=== PATIENT | male | born 1970 | race Caucasian/White ===

== ENCOUNTER 2017-10-17 17:58 | Inpatient (IN) | payer OTHER ==
[2017-10-17 18:11] VITALS: BMI 45.9
[2017-10-17] MEDS ORDERED: Naloxone 0.4 mg/ml Inj (Adult) ONE (18:19)
[2017-10-17] MEDS ORDERED: Naloxone 4 mg/10 ml Inj IV STA (18:20)
--- NOTE | 2017-10-17 18:24 | EDPD ---
HPI Stroke - General Time Seen by Provider: 10/17/17 18:18 Chief Complaint: Altered Mental Status Historian: Patient, EMS, Other (pt is currently poor historian) - History of Present Illness Narrative History of Present Illness (Free Text): 10/17/17 1818 pt p/w + altered mental status from the street; pt was witnessed to be wondering by multiple by-standers; pt has no recollection; pt arrived to ED altered and able only to state his name; pt denied any pain; pt denied other complaints unknown timeframe of pt's altered state PCP: unknown Date:: 10/17/17 Timing: Other (unknown) Context: Walking Associated Symptoms: other (nothing) Exacerbated by: Nothing Relieved by: Nothing - Location Location: Mental Status - Pain Assessment/Levels Maximum Severity: None Severity Current: None rTPA Inclusion/Exclusion - Refusal of Treatment Patient Refused Treatment: No - Inclusion Criteria for Altepase Patient is 18 years or Older: Yes The Clinical Diagnosis of Ischemic Stroke That is Causing a Potentially Disabling Neurological Deficit: No Time of Onset is Well Established to be Less Than 270 Minute Before Treatment Would Begin: No Risk/Benefit Discussed With Patient/Family Member Present: Yes - Exclusion Criteria for Altepase Uncontrolled Hypertension at Time of Treatment (Systolic BP above 185 or Diastolic BP above 110 mmHg): No Active Internal Bleeding: No Known Bleeding Diathesis Including but Not Limited to: Platelets Below 100,000/ mm,PTT Above 40 sec After Heparin Use, Current Use of Oral Anitcoagulant With INR Greater Than 1.7 or PT Greater Than 15 secs: No Evidence of an Intracranial Hemorrhage: No Evidence of Major Acute Infarct With Signs Greater Than 1/3 MCA Territory: No Suspicion of Subarachnoid Hemorrhage on Pretreatment Evaluation Even if CT Head Negative For Hemorrhage: No - Warning to TPA With Conditions Following Conditions Weighed Against Anticipated Benefit: Yes Condition: Care Team Unable to Determine Eligibilty (pt with unknown timeframe of altered mental status) Past Medical History - Provider Review Nursing Documentation Reviewed: Yes - Travel History Have you recently traveled outside [place] w/in the past 3 mons?: No - Past History Past History: Unable to Obtain - Infectious Disease Hx of Infectious Diseases: None - Tetanus Immunization Tetanus Immunization: Unknown - Cardiac Hx Hypertension: Yes - Pulmonary Hx Sleep Apnea: Yes - Neurological Hx Neurological Disorder: No - HEENT Hx HEENT Disorder: No - Renal Hx Renal Disorder: No - Endocrine/Metabolic Hx Diabetes Mellitus Type 2: Yes - Hematological/Oncological Hx Anemia: Yes - Integumentary Hx Dermatological Disorder: No - Musculoskeletal/Rheumatological Hx Falls: Yes - Gastrointestinal Hx Gastrointestinal Disorders: No - Genitourinary/Gynecological Hx Genitourinary Disorders: No - Psychiatric Hx Psychophysiologic Disorder: No Hx Substance Use: Yes - Surgical History Other/Comment: throat surgery - Anesthesia Hx Anesthesia: No Hx Anesthesia Reactions: No Hx Malignant Hyperthermia: No Family/Social History - Family/Social History Family History: Non-Contributory Tobacco: Smokes Alcohol: Other (unknown) Drugs: Rajni - Review Nursing documentation reviewed.: Yes Allergies/Home Meds Allergies/Adverse Reactions: Allergies FISH Allergy (Verified 10/17/17 18:08) RASH Home Medications: Home Meds Medication Instructions Recorded Confirmed Adult Low Dose Aspirin EC 81 PO DAILY 07/26/15 07/26/15 Cogentin 2 mg PO BID 07/26/15 10/18/16 Metformin HCl 1,000 mg PO BID 07/26/15 10/18/16 Prilosec 20 mg PO 07/26/15 07/26/15 Valsartan [Diovan] 320 mg PO DAILY 07/26/15 10/18/16 Zocor 40 mg PO DAILY 07/26/15 10/18/16 Depakote ER 10/18/16 Benztropine [Cogentin] 2 mg PO DAILY 04/25/17 04/25/17 Divalproex [Depakote ER] 1,250 mg PO DAILY 04/25/17 04/25/17 Haloperidol [Haldol] 10 mg PO DAILY 04/25/17 04/25/17 Lisinopril [Zestril] 30 mg PO DAILY 04/25/17 04/25/17 cloZAPine [Clozaril] 450 mg PO DAILY 04/25/17 04/25/17 Review of Systems - Review of Systems Systems not reviewed;Unavailable: Altered Mental Status Constitutional: Fatigue. absent: Weight Change Eyes: Normal ENT: Normal Respiratory: Normal. absent: SOB Cardiovascular: Normal. absent: Chest Pain Gastrointestinal: Normal. absent: Abdominal Pain Genitourinary Male: Normal Musculoskeletal: Normal. absent: Back Pain, Neck Pain Skin: Normal Neurological: Other (altered behavior). absent: Headache, Dizziness Endocrine: Normal Hemo/Lymphatic: Normal Psychiatric: Normal ED Stroke Physical Exam Vital Signs Reviewed: Yes Vital Signs Pulse Resp Pulse Ox 10/17/17 18:09 104 H 21 96 Temperature: Afebrile Blood Pressure: Normal Pulse: Tachycardic Respiratory Rate: Normal Appearance: Positive for: Unkept, Other (resting in bed, arousable to voice but quickly falls asleep; NAD, resting in bed, + unkempt, + smells of urine, cooperative) Pain Distress: None Mental Status: Positive for: other (Alertx1 (NOT to date, time and place)) Finger Stick Blood Glucose: 148 - Systems Exam Head: Present: Atraumatic, Normocephalic Pupils: Present: Pinpoint, Other (no nystagmus, no photophobia, sclera anicteric ) Extroacular Muscles: Present: EOMI Conjunctiva: Present: Normal Ears: Present: Normal Mouth: Present: Moist Mucous Membranes, Other (poor dentitions, no drooling/ stridor, no exudate/lesions; no dsyphonia) Pharnyx: Present: Normal Nose (External): Present: Atraumatic Nose (Internal): Present: Normal Inspection Neck: Present: Normal Range of Motion, Trachea Midline, Other (no nuchal rigidity). No: Meningeal Signs, MIDLINE TENDERNESS Respiratory/Chest: Present: Clear to Auscultation, Good Air Exchange, Other ( CTA b/l, no w/r/r, no tachypenia; slight coarse breath sounds bibasiliar). No: Respiratory Distress, Accessory Muscle Use Cardiovascular: Present: Regular Rate and Rhythm, Normal S1, S2. No: Murmurs Abdomen: Present: Normal Bowel Sounds, Other (morbid obese male, no focal tenderness, no masses/rebound/guarding/rigidity, no aranda's sign, no mcburney' s point tenderness). No: Tenderness, Distention, Peritoneal Signs Back: Present: Normal Inspection. No: CVA Tenderness, Midline Tenderness, Paraspinal Tenderness Upper Extremity: Present: Normal Inspection, Normal ROM, NORMAL PULSES, Neurovascularly Intact. No: Cyanosis, Edema Lower Extremity: Present: Normal Inspection, NORMAL PULSES, Neurovascularly Intact, Other (+ b/l foot appears covered in dirt, otherwise no open sores visible). No: Edema Neurologic: Present: Other (slurr speech (unknown if new), ) Skin: Present: Warm, Dry, Normal Color. No: Rashes Lymphatic: Present: OX3, NI, NC Psychiatric: Present: Alert (NOT to date, time and place; easily arousable to voice) Medical Decision Making ED Course and Treatment: 10/17/17 18:18 Impression: 47 year old male presents to the emergency department for altered mental status. Differential Diagnosis: I have considered all differential diagnoses regarding patient's chief medical complaints/clinical findings but are not limited to: CVA vs. TIA vs. seizure Plan: -- Blood type/screen -- VBG -- CT of head -- EKG -- Labs -- Reassess and disposition Prior Visits: Notes and results from previous visits were reviewed. Progress Notes: 10/17/17 18:16 Code stroke activated. 10/17/17 18:[address] Ott, who is aware of patient's clinical symptoms. Patient is NOT A CANDIDATE FOR tPA because of unknown timeframe of mental status change and his current clinical symptoms does not correlate with CVA. 10/17/17 19:55 Upon reassessment (post 1 mg narcan), patient's symptoms appears to have transiently improved. Patient is more alert and orientedx3. Patient states he was just wandering on the streets and believes he is in [facility]. Patient is aware that he is currently in [facility]. Patient denies any drug use. Pupils are still pinpoint, will continue administration of narcan. 10/17/17 20:35 Discussed case with Avi Anders, medicine service dimension warehouse supervisor for the hospitalists, who is aware and would like to obtaine toxicology results, will continue to monitor, and agrees with admission. 2200 pt is more awake pt is resting in bed pt is not in any distress pt is made aware of his medical results agrees with admission pt denied SI/HI pt denied hallucinations pt states he was easily tired all day today Re-evaluation Time: 20:00 Reassessment Condition: Unchanged - Critical Care Critical Care Minutes: 45 minutes Critical Care Time: Excluding Proc Time Narrative Critical Care (Text): 10/18/17 00:15 critical care time: 45min, excluding procedure time, excluding time teaching residents/students/mid-level providers; including initial eval/diagnosis, diagnostic interpretation, re-eval, consultations, final disposition - Lab Interpretations Lab Results: Lab Results 10/17/17 18:02: POC Glucose (mg/dL) 148 H I have reviewed the lab results: Yes Interpretation: Abnormal lab values (elevated GLUC) - RAD Interpretation Narrative RAD Interpretations (Text): 10/17/17 19:11 CT of head reviewed by the radiologist, shows: No evidence of acute infarct. No intracranial mass or hemorrhage. 10/17/17 19:20 CTA of head reviewed by radiologist, shows: FINDINGS: INTERNAL CEREBRAL ARTERIES: Unremarkable. The skull base, petrous, cavernous and supraclinoid segments are bilaterally widely patent. ANTERIOR CEREBRAL ARTERIES: Unremarkable. A1 and A2 segments are widely patent. Smaller distal branches unremarkable, as visualized. MIDDLE CEREBRAL ARTERIES: Unremarkable. M1 and M2 segments are widely patent. Perisylvian branches grossly symmetric. POSTERIOR CIRCULATION: Basilar Artery: Unremarkable. Distal Vertebral Arteries: Unremarkable. Posterior Cerebral Arteries: Unremarkable. Posterior Inferior Cerebellar Arteries: Unremarkable. NECK CTA: Imaging through the proximal common carotid arteries as well as the bilateral proximal vertebral arteries is compromised by marked beam hardening artifact from obese body habitus and motion artifact as well. Common Carotid arteries: The bilateral common carotid arteries appear once again patent from in general with no significant stenosis appreciated. No evidence to suggest common carotid artery dissection. Internal Carotid arteries: No significant stenosis is appreciated throughout the cervical internal carotid artery segments bilaterally and there is no evidence of dissection either. External Carotid arteries: Appear unremarkable bilaterally. Vertebral arteries: The bilateral vertebral arteries generally appear patent without significant stenosis. No definite pattern of dissection. ANEURYSM/ VASCULAR MALFORMATIONS: None. OTHER FINDINGS: None. IMPRESSION: Likely no significant CTA interval findings as compared prior head and neck CTA 04/30/2017. No definitive suspicious findings on CT angiography of the head and neck, however, obese body habitus and motion artifacts obscure proximal neck portion of the CT angiogram. Follow-up MRA of the head and neck is advised for added sensitivity. . 10/18/17 00:17 cxr - Physician Impression : Normal Light Truck Driver: Radiologist - EKG Interpretation EKG Interpretation (Text): 10/18/17 00:17 NSR at 100 bpm, LAD, no ectopy, voltage criteria LVH, no st-t changes, ABNL EKG ; unchanged compare with old ekg 04/2017 Interpreted by ED Physician: Yes Type: 12 lead EKG Comparison: Similar to previous EKG - Scribe Statement The provider has reviewed the documentation as recorded by the Scribe Kizzy Hodge. All medical record entries made by the Angeliibe were at my direction and personally dictated by me. I have reviewed the chart and agree that the record accurately reflects my personal performance of the history, physical exam, medical decision making, and the department course for this patient. I have also personally directed, reviewed, and agree with the discharge instructions and disposition. NIHSS Scale (Lyles) Time Performed: 18:15 - How Severe is the Stoke Baseline Level of Consciousness: 1=Drowsy LOC to Questions: 1=One correct LOC to commands: 0=Obeys both correctly Best Gaze: 0=Normal Visual: 0=No visual loss Facial: 0=Normal Motor Arm - Left: 0=No drift Motor Arm - Right: 0=No drift Motor Leg - Left: 1=Drift before 5 sec Motor Leg - Right: 1=Drift before 5 sec Limb Ataxia: 0=Absent Sensory: 0=Normal Best Language: 1=Mild to moderate aphasia Dysarthia: 0=Normal articulation Extinction & Inattention (Neglect): 0=Normal, no object Score: 5 Risk Level: Mod Stroke Risk Disposition/Present on Arrival - Present on Arrival Any Indicators Present on Arrival: No History of DVT/PE: No History of Uncontrolled Diabetes: No Urinary Catheter: No History of Decub. Ulcer: No History Surgical Site Infection Following: None - Disposition Have Diagnosis and Disposition been Completed?: Yes Diagnosis: Altered mental status, unspecified, Encephalopathy, Sleep apnea Diagnosis: (Ruled Out): Encephalitis Disposition: HOSPITALIZED Disposition Time: 21:00 Patient Plan: Admission, Telemetry Patient Problems: Current Active Problems Problem Status Onset Altered mental status Acute Encephalopathy Acute Sleep apnea Acute Condition: STABLE
[2017-10-17] MEDS ORDERED: Iohexol 350 MG/100 ML VIAL ONE (18:28)
--- NOTE | 2017-10-17 18:49 | CT ---
PROCEDURE: CT HEAD WITHOUT CONTRAST. HISTORY: Code Stroke COMPARISON: 04/22/2017 TECHNIQUE: Axial computed tomography images were obtained through the head/brain without intravenous contrast. Radiation dose: Total exam DLP = 2053.25 mGy-cm. This CT exam was performed using one or more of the following dose reduction techniques: Automated exposure control, adjustment of the mA and/or kV according to patient size, and/or use of iterative reconstruction technique. FINDINGS: HEMORRHAGE: No intracranial hemorrhage. BRAIN: No mass effect or edema. No atrophy or chronic microvascular ischemic changes. VENTRICLES: Unremarkable. No hydrocephalus. CALVARIUM: Unremarkable. PARANASAL SINUSES: Unremarkable as visualized. No significant inflammatory changes. MASTOID AIR CELLS: Unremarkable as visualized. No inflammatory changes. OTHER FINDINGS: None. IMPRESSION: No evidence of acute infarct. No intracranial mass or hemorrhage. The findings in this examination were discussed by telephone with Dr. Shi at 6:45 p.m. on 10/17/2017.
[2017-10-17 19:04] LABS: BASO # 0.01 K/mm3 (0.0-2.0); BASO % 0.1 % (0.0-3.0); EOS # 0.2 (0.0-0.7); EOS % 3.1 % (1.5-5.0); GRAN # 3.16 (1.4-6.5); GRAN % 47.2 % (50.0-68.0); HEMOGLOBIN 14.3 g/dL (14.0-18.0); LYMPH # 2.8 (1.2-3.4); LYMPH % 41.4 % (22.0-35.0); MEAN CELL VOLUME 86.7 fl (80.0-105.0); MEAN CORPUSCULAR HEMOGLOBIN 28.5 pg (25.0-35.0); MEAN CORPUSCULAR HGB CONC 32.9 g/dl (31.0-37.0); MEAN PLATELET VOLUME 9.5 fl (7.0-11.0); MONO # 0.6 (0.1-0.6); MONO % 8.2 % (1.0-6.0); RBC 5.02 10^6/uL (3.5-6.1); RED CELL DISTRIBUTION WIDTH 13.1 % (11.5-14.5); WHITE BLOOD COUNT 6.7 10^3/ul (4.5-11.0)
[2017-10-17 19:08] LABS: ALB/GLOB RATIO 1.3 (1.1-1.8); ALBUMIN 4.3 g/dL (3.0-4.8); ALT/SGPT 22 U/L (7-56); AST/SGOT 29 U/L (17-59); BLOOD UREA NITROGEN 16 mg/dL (7-21); CALCIUM 9.3 mg/dL (8.4-10.5); GFR AFRICAN-AMERICAN > 60; GFR NON-AFRICAN AMERICAN > 60
--- NOTE | 2017-10-17 19:09 | CT ---
PROCEDURE: CT Angiography of the Brain. HISTORY: AMS, code stroke COMPARISON: None available. TECHNIQUE: CT angiography of the intracranial and cervical arteries was performed. Coronal and sagittal maximum intensity projection reformatted images were generated. Contrast Dose: Omnipaque 350, 100 cc Radiation dose:Total exam DLP = 704.50 mGy-cm. This CT exam was performed using one or more of the following dose reduction techniques: Automated exposure control, adjustment of the mA and/or kV according to patient size, and/or use of iterative reconstruction technique. FINDINGS: INTERNAL CEREBRAL ARTERIES: Unremarkable. The skull base, petrous, cavernous and supraclinoid segments are bilaterally widely patent. ANTERIOR CEREBRAL ARTERIES: Unremarkable. A1 and A2 segments are widely patent. Smaller distal branches unremarkable, as visualized. MIDDLE CEREBRAL ARTERIES: Unremarkable. M1 and M2 segments are widely patent. Perisylvian branches grossly symmetric. POSTERIOR CIRCULATION: Basilar Artery: Unremarkable. Distal Vertebral Arteries: Unremarkable. Posterior Cerebral Arteries: Unremarkable. Posterior Inferior Cerebellar Arteries: Unremarkable. NECK CTA: Imaging through the proximal common carotid arteries as well as the bilateral proximal vertebral arteries is compromised by marked beam hardening artifact from obese body habitus and motion artifact as well. Common Carotid arteries: The bilateral common carotid arteries appear once again patent from in general with no significant stenosis appreciated. No evidence to suggest common carotid artery dissection. Internal Carotid arteries: No significant stenosis is appreciated throughout the cervical internal carotid artery segments bilaterally and there is no evidence of dissection either. External Carotid arteries: Appear unremarkable bilaterally. Vertebral arteries: The bilateral vertebral arteries generally appear patent without significant stenosis. No definite pattern of dissection. ANEURYSM/ VASCULAR MALFORMATIONS: None. OTHER FINDINGS: None. IMPRESSION: Likely no significant CTA interval findings as compared prior head and neck CTA 04/30/2017. No definitive suspicious findings on CT angiography of the head and neck, however, obese body habitus and motion artifacts obscure proximal neck portion of the CT angiogram. Follow-up MRA of the head and neck is advised for added sensitivity. .
[2017-10-17 19:10] LABS: INR 1.07 (0.93-1.08); PARTIAL THROMBOPLASTIN TIME 32.5 Seconds (25.1-36.5); PROTHROMBIN TIME 12.2 SECONDS (9.4-12.5)
[2017-10-17 19:11] LABS: ACETAMINOPHEN < 10.0 ug/ml (10.0-20.0); SALICYLATE < 1 mg/dL (2.0-20.0)
[2017-10-17 19:19] LABS: B-TYPE NATRIURETIC PEPTIDE 114 pg/mL (0-450); TROPONIN I 0.02 ng/mL
--- NOTE | 2017-10-17 19:39 | CARD ---
APPROVED REPORT EKG Measurement Heart [id number] CT [id number] <Conclusion> Sinus tachycardia Possible Left atrial enlargement Left ventricular hypertrophy Abnormal ECG
[2017-10-17] MEDS ORDERED: Naloxone 0.4 mg/ml Inj (Adult) IVP STA (19:55)
[2017-10-17 19:59] LABS: VENOUS BLOOD GAS BASE EXCESS 5.2 mmol/L (0.0-2.0); VENOUS BLOOD GAS PO2 59 mm/Hg (30-55); VENOUS BLOOD PH 7.31 (7.32-7.43)
[2017-10-17 20:13] LABS: OSMOLALITY,SERUM 292 mosm/kg (272-300)
[2017-10-17] MEDS: Sodium Chloride 0.9% 1,000 ML IV SCH (20:51)
--- NOTE | 2017-10-17 21:56 | CP.PCM.HP ---
<Bravo Alarcon - Last Filed: 10/17/17 22:30> History of Present Illness - History of Present Illness History of Present Illness: Medicine H&P: Dr. Avi Davis Chief Complaint: Altered Mental Status HPI: Patient is a 47 year old male who presented after having been found by bystanders walking barefoot on the street. Patient arousable, however lethargic on examination and poor historian. Per chart review, patient has been here in the past for similar episodes. Patient is on several [employer] depressants as home medications. Review of Systems: 12 point ROS obtained and negative except as per HPI, but please note that history is very limited 2/2 Surgical Hx: Patient denies Medical Hx: Diabetes, Asthma, Schizoaffective, HTN, Gout Allergies: Fish Social Hx: Patient denies alcohol, illicits, tobacco Home Meds: Per MAR, reviewed Family Hx: Non-contributory PMD: None Present on Admission - Present on Admission Any Indicators Present on Admission: No Past Patient History - Infectious Disease Hx of Infectious Diseases: None - Tetanus Immunizations Tetanus Immunization: Unknown - Past Social History Alcohol: Other (unknown) Drugs: Denies - CARDIAC Hx Hypertension: Yes - PULMONARY Hx Sleep Apnea: Yes - NEUROLOGICAL Hx Neurological Disorder: No - HEENT Hx HEENT Problems: No - RENAL Hx Chronic Kidney Disease: No - ENDOCRINE/METABOLIC Hx Diabetes Mellitus Type 2: Yes - HEMATOLOGICAL/ONCOLOGICAL Hx Anemia: Yes - INTEGUMENTARY Hx Dermatological Problems: No - MUSCULOSKELETAL/RHEUMATOLOGICAL Hx Falls: Yes - GASTROINTESTINAL Hx Gastrointestinal Disorders: No - GENITOURINARY/GYNECOLOGICAL Hx Genitourinary Disorders: No - PSYCHIATRIC Hx Psychophysiologic Disorder: No Hx Substance Use: Yes - SURGICAL HISTORY Other/Comment: throat surgery - ANESTHESIA Hx Anesthesia: No Hx Anesthesia Reactions: No Hx Malignant Hyperthermia: No Meds Allergies/Adverse Reactions: Allergies Allergy/AdvReac Type Severity Reaction Status Date / Time FISH Allergy RASH Verified 10/17/17 18:08 Physical Exam - Constitutional Appears: Well - Head Exam Head Exam: ATRAUMATIC, NORMAL INSPECTION, NORMOCEPHALIC - Eye Exam Eye Exam: EOMI, Normal appearance, PERRL Pupil Exam: NORMAL ACCOMODATION, PERRL - ENT Exam ENT Exam: Mucous Membranes Moist, Normal Exam - Neck Exam Neck exam: Positive for: Normal Inspection - Respiratory Exam Respiratory Exam: Clear to Auscultation Bilateral, NORMAL BREATHING PATTERN - Cardiovascular Exam Cardiovascular Exam: REGULAR RHYTHM - GI/Abdominal Exam GI & Abdominal Exam: Normal Bowel Sounds, Soft. absent: Tenderness - Extremities Exam Extremities exam: Positive for: normal inspection - Back Exam Back exam: NORMAL INSPECTION - Neurological Exam Neurological exam: Alert, Altered Additional comments: lethargic CN2-12 grossly intact Pinpoint pupils PERRL motor function grossly intact bilaterally babinski downward bilaterally - Psychiatric Exam Psychiatric exam: Normal Affect, Normal Mood - Skin Skin Exam: Dry, Intact, Normal Color, Warm Results - Vital Signs Recent Vital Signs: Last Vital Signs Temp Pulse 99 H 10/17/17 20:41 Resp 17 10/17/17 20:41 BP 148/98 H 10/17/17 20:41 Pulse Ox 99 10/17/17 20:41 - Labs Result Diagrams: 10/17/17 18:36 10/17/17 18:36 Labs: Laboratory Results - last 24 hr 10/17/17 10/17/17 10/17/17 18:02 18:36 18:36 WBC 6.7 RBC 5.02 Hgb 14.3 D Hct 43.5 MCV 86.7 D MCH 28.5 MCHC 32.9 RDW 13.1 Plt Count 303 MPV 9.5 Gran % 47.2 L Lymph % (Auto) 41.4 H [place] % (Auto) 8.2 H Eos % (Auto) 3.1 Baso % (Auto) 0.1 Gran # 3.16 Lymph # (Auto) 2.8 [place] # (Auto) 0.6 Eos # (Auto) 0.2 Baso # (Auto) 0.01 PT 12.2 INR 1.07 APTT 32.5 pO2 VBG pH VBG pCO2 VBG HCO3 VBG Total CO2 VBG O2 Sat (Calc) VBG Base Excess VBG Potassium Glucose Lactate FiO2 Sodium Potassium Chloride Carbon Dioxide Anion Gap BUN Creatinine Est GFR ( Amer) Est GFR (Non-Af Amer) POC Glucose (mg/dL) 148 H Random Glucose Serum Osmolality Calcium Total Bilirubin AST ALT Alkaline Phosphatase Ammonia Total Creatine Kinase Troponin I NT-Pro-B Natriuret Pep Total Protein Albumin Globulin Albumin/Globulin Ratio TSH 3rd Generation Venous Blood Potassium Salicylates Acetaminophen Valproic Acid Alcohol, Quantitative Blood Type Blood Type Confirm Antibody Screen BBK History Checked 10/17/17 10/17/17 10/17/17 18:36 18:36 18:36 WBC RBC Hgb Hct MCV MCH MCHC RDW Plt Count MPV Gran % Lymph % (Auto) [place] % (Auto) Eos % (Auto) Baso % (Auto) Gran # Lymph # (Auto) [place] # (Auto) Eos # (Auto) Baso # (Auto) PT INR APTT pO2 VBG pH VBG pCO2 VBG HCO3 VBG Total CO2 VBG O2 Sat (Calc) VBG Base Excess VBG Potassium Glucose Lactate FiO2 Sodium 143 Potassium 3.8 Chloride 98 Carbon Dioxide 31 Anion Gap 17 BUN 16 Creatinine 0.8 Est GFR ( Amer) > 60 Est GFR (Non-Af Amer) > 60 POC Glucose (mg/dL) Random Glucose 152 H Serum Osmolality Calcium 9.3 Total Bilirubin 0.1 L AST 29 ALT 22 Alkaline Phosphatase 68 Ammonia Total Creatine Kinase Troponin I 0.02 D NT-Pro-B Natriuret Pep 114 Total Protein 7.6 Albumin 4.3 Globulin 3.3 Albumin/Globulin Ratio 1.3 TSH 3rd Generation Venous Blood Potassium Salicylates < 1 L Acetaminophen < 10.0 L Valproic Acid 58 Alcohol, Quantitative Blood Type Blood Type Confirm Antibody Screen BBK History Checked 10/17/17 10/17/17 10/17/17 18:36 18:46 19:40 WBC RBC Hgb Hct MCV MCH MCHC RDW Plt Count MPV Gran % Lymph % (Auto) [place] % (Auto) Eos % (Auto) Baso % (Auto) Gran # Lymph # (Auto) [place] # (Auto) Eos # (Auto) Baso # (Auto) PT INR APTT pO2 59 H VBG pH 7.31 L VBG pCO2 65.0 H VBG HCO3 33.7 H VBG Total CO2 35.8 H VBG O2 Sat (Calc) 93.5 H VBG Base Excess 5.2 H VBG Potassium 5.1 Glucose 132 H Lactate 2.1 FiO2 21.0 Sodium 136.0 Potassium Chloride 99.0 Carbon Dioxide Anion Gap BUN Creatinine Est GFR ( Amer) Est GFR (Non-Af Amer) POC Glucose (mg/dL) Random Glucose Serum Osmolality 292 Calcium Total Bilirubin AST ALT Alkaline Phosphatase Ammonia Total Creatine Kinase Troponin I NT-Pro-B Natriuret Pep Total Protein Albumin Globulin Albumin/Globulin Ratio TSH 3rd Generation 4.42 Venous Blood Potassium 5.1 Salicylates Acetaminophen Valproic Acid Alcohol, Quantitative < 10 Blood Type O POSITIVE Blood Type Confirm Antibody Screen Negative BBK History Checked No verified bt 10/17/17 10/17/17 10/17/17 19:40 19:41 21:05 WBC RBC Hgb Hct MCV MCH MCHC RDW Plt Count MPV Gran % Lymph % (Auto) [place] % (Auto) Eos % (Auto) Baso % (Auto) Gran # Lymph # (Auto) [place] # (Auto) Eos # (Auto) Baso # (Auto) PT INR APTT pO2 VBG pH VBG pCO2 VBG HCO3 VBG Total CO2 VBG O2 Sat (Calc) VBG Base Excess VBG Potassium Glucose Lactate FiO2 Sodium Potassium Chloride Carbon Dioxide Anion Gap BUN Creatinine Est GFR ( Amer) Est GFR (Non-Af Amer) POC Glucose (mg/dL) Random Glucose Serum Osmolality Calcium Total Bilirubin AST ALT Alkaline Phosphatase Ammonia 28 Total Creatine Kinase 168 Troponin I NT-Pro-B Natriuret Pep Total Protein Albumin Globulin Albumin/Globulin Ratio TSH 3rd Generation Venous Blood Potassium Salicylates Acetaminophen Valproic Acid Alcohol, Quantitative Blood Type Blood Type Confirm O POSITIVE Antibody Screen BBK History Checked Assessment & Plan - Assessment and Plan (Free Text) Assessment: 47 year old male with pertinent medical history of schizoaffective, seizures, and medication overdoses presents with AMS. Depakote normal, Ammonia normal. Patient was tachycardic and altered on exam, with pinpoint pupils. Received Narcan in the ED, two doses, after which he appeared to become more responsive. Troponin was negative, EKG did not show ST/T changes. Head CT and Hand and Neck CTA negative for stroke. Plan: Altered Mental Status, possibly 2.2 medication overdose - Hold [employer] suppressants for now - Psychiatry consulted - UDS - Fall, Seizure, Aspiration protocols - NPO diet - Follow up serial tropes and ekgs H/O Schizoaffective disorder - Hold [employer] depressants for now - Psychiatry consulted DM - ISS low - Accuchecks q6h HTN - Cont home med: Lisinopril H/O Asthma - Likely dx of JOHNY as well - Cont BIPAP HS - Duonebs PRN GI/DVT prophylaxis - Prilosec/Lovenox <Lelo Davis - Last Filed: 10/18/17 04:16> Results - Vital Signs Recent Vital Signs: Last Vital Signs Temp 98.8 F 10/18/17 02:39 Pulse 88 10/18/17 02:39 Resp 20 10/18/17 02:39 BP 136/90 10/18/17 02:39 Pulse Ox 99 10/18/17 00:48 - Labs Result Diagrams: 10/17/17 18:36 10/17/17 18:36 Labs: Laboratory Results - last 24 hr 10/17/17 10/18/17 23:50 00:01 pO2 126 H VBG pH 7.32 VBG pCO2 65.0 H VBG HCO3 33.5 H VBG Total CO2 35.5 H VBG O2 Sat (Calc) 98.4 H VBG Base Excess 5.3 H VBG Potassium 3.7 Sodium 139.0 Chloride 103.0 Glucose 126 H Lactate 1.8 FiO2 21.0 Venous Blood Potassium 3.7 Urine Color Yellow Urine Appearance Clear Urine pH 6.0 Ur Specific [place] 1.015 Urine Protein Negative Urine Glucose (UA) Negative Urine Ketones Negative Urine Blood Negative Urine Nitrate Negative Urine Bilirubin Negative Urine Urobilinogen 0.2 Ur Leukocyte Esterase Negative
[2017-10-17] MEDS ORDERED: Albuterol-Ipratrop 3 mg / 0.5 (3 ml) UD IH PRN (23:30)
[2017-10-18 00:24] LABS: VENOUS BLOOD GAS BASE EXCESS 5.3 mmol/L (0.0-2.0); VENOUS BLOOD GAS PO2 126 mm/Hg (30-55); VENOUS BLOOD PH 7.32 (7.32-7.43)
[2017-10-18 00:54] LABS: URINE BILIRUBIN NEGATIVE (NEGATIVE); URINE BLOOD NEGATIVE (NEGATIVE); URINE GLUCOSE (UA) NEGATIVE (NEGATIVE); URINE LEUKOCYTE ESTERASE NEGATIVE Leu/uL (NEGATIVE); URINE PROTEIN NEGATIVE mg/dL (<30 mg/dL); URINE UROBILINOGEN 0.2 E.U./dL (<1 E.U./dL)
[2017-10-18 00:55] LABS: URINE APPEARANCE CLEAR (CLEAR); URINE COLOR YELLOW (YELLOW)
[2017-10-18] MEDS: Sodium Chloride 0.9% 1,000 ML IV SCH ×2 (04:30→19:01)
[2017-10-18 07:12] LABS: BASO # 0.02 K/mm3 (0.0-2.0); BASO % 0.3 % (0.0-3.0); EOS # 0.3 (0.0-0.7); EOS % 3.3 % (1.5-5.0); GRAN # 3.17 (1.4-6.5); GRAN % 42.2 % (50.0-68.0); HEMOGLOBIN 12.5 g/dL (14.0-18.0); LYMPH # 3.5 (1.2-3.4); LYMPH % 46.9 % (22.0-35.0); MEAN CELL VOLUME 87.3 fl (80.0-105.0); MEAN CORPUSCULAR HEMOGLOBIN 27.9 pg (25.0-35.0); MEAN PLATELET VOLUME 10.6 fl (7.0-11.0); MONO # 0.6 (0.1-0.6); MONO % 7.3 % (1.0-6.0); RBC 4.48 10^6/uL (3.5-6.1); RED CELL DISTRIBUTION WIDTH 13.5 % (11.5-14.5); WHITE BLOOD COUNT 7.5 10^3/ul (4.5-11.0)
[2017-10-18 07:31] LABS: TROPONIN I 0.03 ng/mL
[2017-10-18] MEDS: Insulin Reg-LOW-Coverage SC SCH ×4 (08:00→22:45)
--- NOTE | 2017-10-18 08:00 | CP.PCM.PN ---
<Wilbert Osei - Last Filed: 10/18/17 10:43> Subjective - Date & Time of Evaluation Date of Evaluation: 10/18/17 Time of Evaluation: 09:45 - Subjective Subjective: Subjective: Patient seen and examined at bedside. Resting comfortably in bed with BiPAP mask positioned securely. No acute events since admission. Patient altered mental status has significantly improved relative to baseline. Offers no new complaints at this time. Denies fever, chills, chest pain, shortness of breath, abdominal pain, nausea, vomiting, diarrhea, constipation, and urinary symptoms. 12-point review of systems negative except as indicated in the HPI Physical Examination: - Constitutional Appears: Well - Head Exam Head Exam: ATRAUMATIC, NORMAL INSPECTION, NORMOCEPHALIC - Eye Exam Eye Exam: EOMI, Normal appearance, PERRL - ENT Exam ENT Exam: Mucous Membranes Moist, Normal Exam - Neck Exam Neck exam: Positive for: Normal Inspection - Respiratory Exam Respiratory Exam: Clear to Auscultation Bilateral, NORMAL BREATHING PATTERN - Cardiovascular Exam Cardiovascular Exam: REGULAR RHYTHM - GI/Abdominal Exam GI & Abdominal Exam: Normal Bowel Sounds, Soft. absent: Tenderness - Extremities Exam Extremities exam: Positive for: normal inspection - Neurological Exam Neurological exam: Patient is awake, alert, responds to verbal stimuli, answers questions appropriately, follows commands, and moves extremities past midline - Psychiatric Exam Psychiatric exam: Normal Affect, Normal Mood - Skin Skin Exam: Dry, Intact, Normal Color, Warm Assessment and Plan: Patient is a 47 year old male with pertinent medical history of schizoaffective , seizures, and medication overdoses who was admitted for evaluation and treatment of altered mental status. Received Narcan in the ED, two doses, after which he appeared to become more responsive. Altered Mental Status - possibly 2/2 medication overdose - head CT and Hand and Neck CTA negative for stroke - depakote level normal - ammonia level normal - psychiatry consulted- appreciate recommendations- started patient on cogentin , depakote, and haloperidol - UDS ordered and pending - Fall, Seizure, Aspiration protocols - NPO diet - Troponin was negative, EKG did not show ST/T changes. H/O Schizoaffective disorder - Psychiatry consulted- appreciate recommendations- started patient on cogentin , depakote, and haloperidol DM - ISS low - Accuchecks q6h HTN - Cont home med: Lisinopril H/O Asthma - Likely dx of JHONY as well - Cont BIPAP HS - Duonebs PRN GI/DVT prophylaxis - Prilosec/Lovenox Patient seen, case discussed with, and plan approved by attending physician. Objective - Vital Signs/Intake and Output Vital Signs (last 24 hours): Temp Pulse Resp BP Pulse Ox 98.7 F 87 20 129/89 100 10/18/17 05:57 10/18/17 05:57 10/18/17 05:57 10/18/17 05:57 10/18/17 05:57 - Medications Medications: Current Medications Albuterol/Ipratropium (Duoneb 3 Mg/0.5 Mg (3 Ml) Ud) 3 ml IH Q2H PRN PRN Reason: Shortness of Breath Aspirin (Ecotrin) 81 mg PO DAILY MEG Atorvastatin Calcium (Lipitor) 20 mg PO DIN MEG Colchicine (Colocrys) 0.6 mg PO DAILY MEG Enoxaparin Sodium (Lovenox) 40 mg SC DAILY [facility] PRN Reason: Protocol Sodium Chloride (Sodium Chloride 0.9%) 1,000 mls @ 100 mls/hr IV .Q10H [facility] Last Admin: 10/18/17 04:30 Dose: Not Given Indomethacin (Indocin) 25 mg PO TID PRN PRN Reason: Pain, moderate (4-7) Insulin Human Regular (Humulin R Low) 0 units SC ACHS [facility] PRN Reason: Protocol Lisinopril (Zestril) 30 mg PO DAILY MEG Pantoprazole Sodium (Protonix Ec Tab) 40 mg PO ACB MEG Valsartan (Diovan) 320 mg PO DAILY MEG - Labs Labs: 10/18/17 06:00 PT 12.2 SECONDS (9.4-12.5) 10/17/17 18:36 INR 1.07 (0.93-1.08) 10/17/17 18:36 APTT 32.5 Seconds (25.1-36.5) 10/17/17 18:36 <Marilee Wade - Last Filed: 10/18/17 14:12> Objective - Vital Signs/Intake and Output Vital Signs (last 24 hours): Temp Pulse Resp BP Pulse Ox 98.2 F 82 18 160/105 H 100 10/18/17 12:00 10/18/17 14:02 10/18/17 12:00 10/18/17 14:02 10/18/17 09:00 Intake and Output: 10/18/17 10/18/17 06:59 18:59 Intake Total 600 Output Total 0 Balance 600 - Medications Medications: Current Medications Albuterol/Ipratropium (Duoneb 3 Mg/0.5 Mg (3 Ml) Ud) 3 ml IH Q2H PRN PRN Reason: Shortness of Breath Albuterol/Ipratropium (Duoneb 3 Mg/0.5 Mg (3 Ml) Ud) 3 ml IH [id number] [facility] Last Admin: 10/18/17 13:01 Dose: 3 ml Aspirin (Ecotrin) 81 mg PO DAILY [facility] Last Admin: 10/18/17 14:04 Dose: 81 mg Atorvastatin Calcium (Lipitor) 20 mg PO DIN MEG Benztropine Mesylate (Cogentin) 1 mg PO HS [facility] Budesonide (Pulmicort Respules) 0.25 mg IH [id number] [facility] Colchicine (Colocrys) 0.6 mg PO DAILY [facility] Last Admin: 10/18/17 14:02 Dose: 0.6 mg Divalproex Sodium (Depakote Er(Once Daily)) 500 mg PO DAILY [facility] PRN Reason: Protocol Enoxaparin Sodium (Lovenox) 40 mg SC DAILY [facility] PRN Reason: Protocol Last Admin: 10/18/17 10:15 Dose: 40 mg Haloperidol (Haldol) 5 mg PO HS [facility] PRN Reason: Protocol Sodium Chloride (Sodium Chloride 0.9%) 1,000 mls @ 100 mls/hr IV .Q10H [facility] Last Admin: 10/18/17 04:30 Dose: Not Given Indomethacin (Indocin) 25 mg PO TID PRN PRN Reason: Pain, moderate (4-7) Insulin Human Regular (Humulin R Low) 0 units SC ACHS [facility] PRN Reason: Protocol Last Admin: 10/18/17 12:07 Dose: Not Given Lisinopril (Zestril) 30 mg PO DAILY [facility] Last Admin: 10/18/17 14:02 Dose: 30 mg Metoprolol Tartrate (Lopressor) 5 mg IVP Q6H PRN PRN Reason: systolic BP > 160 Pantoprazole Sodium (Protonix Ec Tab) 40 mg PO ACB [facility] Last Admin: 10/18/17 14:03 Dose: 40 mg Valsartan (Diovan) 320 mg PO DAILY [facility] Last Admin: 10/18/17 14:04 Dose: 320 mg - Labs Labs: 10/18/17 06:00 10/18/17 06:00 PT 12.2 SECONDS (9.4-12.5) 10/17/17 18:36 INR 1.07 (0.93-1.08) 10/17/17 18:36 APTT 32.5 Seconds (25.1-36.5) 10/17/17 18:36 Attending/Attestation - Attestation I have personally seen and examined this patient.: Yes I have fully participated in the care of the patient.: Yes I have reviewed all pertinent clinical information, including history, physical exam and plan: Yes Notes (Text): 10/18/17 14:07 Attending note; Patient seen and examined with resident. Patient is a 47 year old male with past medical history of schizoaffective disorder, obesity and medication overdoses who was admitted for evaluation and treatment of altered mental status. Received Narcan in the ED, two doses, after which he appeared to become more responsive. Currently patient is on BiPAP. Alert and awake. Able to answer questions. Moving all extremities. CT head and CTA is negative. Schizoaffective disorder; we will get psychiatric evaluation. Speech and swallow evaluation requested. Hypertension; continue Diovan, metoprolol and lisinopril. Morbid obesity; possible obesity hypoventilation syndrome/JHONY. Continue BiPAP at night. Continue oxygen during daytime. Pulmonary evaluation requested. Upon discharge the patient will follow up with PMD Dr. Mccall.
[2017-10-18] MEDS: Pantoprazole 40 mg EC Tab PO SCH ×2 (08:02→14:03)
[2017-10-18 08:13] LABS: ALB/GLOB RATIO 1.1 (1.1-1.8); ALBUMIN 3.2 g/dL (3.0-4.8); ALT/SGPT 23 U/L (7-56); AST/SGOT 21 U/L (17-59); BLOOD UREA NITROGEN 14 mg/dL (7-21); CALCIUM 8.6 mg/dL (8.4-10.5); GFR AFRICAN-AMERICAN > 60; GFR NON-AFRICAN AMERICAN > 60
[2017-10-18] MEDS ORDERED: Metoprolol 1 mg/ml Inj IVP PRN (09:23)
--- NOTE | 2017-10-18 09:32 | RAD ---
PROCEDURE: CHEST RADIOGRAPH, 1 VIEW HISTORY: Code Stroke COMPARISON: 04/27/2017 FINDINGS: LUNGS: Clear. PLEURA: No pneumothorax or pleural fluid seen. CARDIOVASCULAR: Unchanged. OSSEOUS STRUCTURES: No significant abnormalities. VISUALIZED UPPER ABDOMEN: Normal. OTHER FINDINGS: None. IMPRESSION: No active disease.
[2017-10-18 09:42] LABS: ARTERIAL BLOOD GAS HCO3 33.9 mmol/L (21-28); ARTERIAL BLOOD GAS HEMOGLOBIN 12.2 g/dL (11.7-17.4); ARTERIAL BLOOD GAS O2 CAPACITY 17.1 mL/dl (16-24); ARTERIAL BLOOD GAS O2 CONTENT 16.8 ML/dl (15-23); ARTERIAL BLOOD GAS O2 SAT 98.4 % (95-98); ARTERIAL BLOOD GAS PCO2 60 mm/Hg (35-45); ARTERIAL BLOOD GAS PH 7.36 (7.35-7.45); ARTERIAL BLOOD GAS TCO2 35.7 mmol.L (22-28)
[2017-10-18] MEDS ORDERED: ZOCOR 40 MG PO SCH (10:00)
[2017-10-18] MEDS ORDERED: LISINOPRIL 30 MG PO SCH (10:00)
[2017-10-18] MEDS ORDERED: PRILOSEC 20 MG PO SCH (10:00)
[2017-10-18] MEDS ORDERED: COLCHICINE 0.6 MG PO SCH (10:00)
[2017-10-18] MEDS ORDERED: ASPIRIN 81 MG PO SCH (10:00)
[2017-10-18] MEDS: Enoxaparin 40 mg Syringe SC SCH (10:15)
--- NOTE | 2017-10-18 12:31 | CP.PCM.CON ---
History of Present Illness - History of Present Illness History of Present Illness: Mr. Mccurdy is a 47-year-old man with a past medical history of psychiatric illness and possible seizure disorder, who is on multiple sedating medications, found wandering in the street and confused. Today, he is much more clear thinking and basically back to baseline despite having some respiratory difficulty due to JHONY. Review of Systems - Review of Systems All systems: reviewed and no additional remarkable complaints except Past Patient History - Infectious Disease Hx of Infectious Diseases: None - Tetanus Immunizations Tetanus Immunization: Unknown - Past Social History Smoking Status: Smoker Currrent Status Unknown - CARDIAC Hx Cardiac Disorders: Yes Hx Hypertension: Yes - PULMONARY Hx Respiratory Disorders: Yes Hx Sleep Apnea: Yes (BIPAP) - NEUROLOGICAL Hx Neurological Disorder: Yes Hx Seizures: Yes - HEENT Hx HEENT Problems: No - RENAL Hx Chronic Kidney Disease: No - ENDOCRINE/METABOLIC Hx Endocrine Disorders: Yes Hx Diabetes Mellitus Type 2: Yes - HEMATOLOGICAL/ONCOLOGICAL Hx Blood Disorders: Yes Hx Anemia: Yes - INTEGUMENTARY Hx Dermatological Problems: No - MUSCULOSKELETAL/RHEUMATOLOGICAL Hx Musculoskeletal Disorders: Yes Hx Falls: Yes Hx Gout: Yes - GASTROINTESTINAL Hx Gastrointestinal Disorders: No - GENITOURINARY/GYNECOLOGICAL Hx Genitourinary Disorders: No - PSYCHIATRIC Hx Psychophysiologic Disorder: Yes Hx Anxiety: Yes Hx Depression: Yes Hx Schizophrenia: Yes Hx Substance Use: Yes (Hx depakote use) Other/Comment: HX substance abuse ( depakote) - SURGICAL HISTORY Hx Surgeries: Yes Other/Comment: throat surgery - ANESTHESIA Hx Anesthesia: No Hx Anesthesia Reactions: No Hx Malignant Hyperthermia: No Meds Allergies/Adverse Reactions: Allergies Allergy/AdvReac Type Severity Reaction Status Date / Time FISH Allergy RASH Verified 10/17/17 18:08 - Medications Medications: Current Medications Albuterol/Ipratropium (Duoneb 3 Mg/0.5 Mg (3 Ml) Ud) 3 ml IH Q2H PRN PRN Reason: Shortness of Breath Albuterol/Ipratropium (Duoneb 3 Mg/0.5 Mg (3 Ml) Ud) 3 ml IH [id number] [facility] Aspirin (Ecotrin) 81 mg PO DAILY [facility] Last Admin: 10/18/17 09:49 Dose: Not Given Atorvastatin Calcium (Lipitor) 20 mg PO DIN [facility] Benztropine Mesylate (Cogentin) 1 mg PO HS [facility] Budesonide (Pulmicort Respules) 0.25 mg IH [id number] [facility] Colchicine (Colocrys) 0.6 mg PO DAILY [facility] Last Admin: 10/18/17 09:49 Dose: Not Given Divalproex Sodium (Depakote Er(Once Daily)) 500 mg PO DAILY [facility] PRN Reason: Protocol Enoxaparin Sodium (Lovenox) 40 mg SC DAILY [facility] PRN Reason: Protocol Last Admin: 10/18/17 10:15 Dose: 40 mg Haloperidol (Haldol) 5 mg PO HS [facility] PRN Reason: Protocol Sodium Chloride (Sodium Chloride 0.9%) 1,000 mls @ 100 mls/hr IV .Q10H [facility] Last Admin: 10/18/17 04:30 Dose: Not Given Indomethacin (Indocin) 25 mg PO TID PRN PRN Reason: Pain, moderate (4-7) Insulin Human Regular (Humulin R Low) 0 units SC ACHS [facility] PRN Reason: Protocol Last Admin: 10/18/17 12:07 Dose: Not Given Lisinopril (Zestril) 30 mg PO DAILY [facility] Last Admin: 10/18/17 09:49 Dose: Not Given Metoprolol Tartrate (Lopressor) 5 mg IVP Q6H PRN PRN Reason: systolic BP > 160 Pantoprazole Sodium (Protonix Ec Tab) 40 mg PO ACB [facility] Last Admin: 10/18/17 08:02 Dose: Not Given Valsartan (Diovan) 320 mg PO DAILY [facility] Last Admin: 10/18/17 09:49 Dose: Not Given Physical Exam - Neurological Exam Neurological exam: Abnormal Gait, Alert, CN II-XII Intact, Oriented x3, Reflexes Normal Additional comments: Somnolent, but easily woken and follows commands normally. Speech is fluent. Results - Vital Signs Recent Vital Signs: Last Vital Signs Temp 98.2 F 10/18/17 12:00 Pulse 81 10/18/17 12:00 Resp 18 10/18/17 12:00 BP 123/96 H 10/18/17 12:00 Pulse Ox 100 10/18/17 09:00 - Labs Result Diagrams: 10/18/17 06:00 10/18/17 06:00 Labs: Laboratory Results - last 24 hr 10/17/17 10/18/17 10/18/17 23:50 00:01 06:00 WBC 7.5 RBC 4.48 Hgb 12.5 L Hct 39.1 L MCV 87.3 MCH 27.9 MCHC 32.0 RDW 13.5 Plt Count 231 MPV 10.6 Gran % 42.2 L Lymph % (Auto) 46.9 H Addison % (Auto) 7.3 H Eos % (Auto) 3.3 Baso % (Auto) 0.3 Gran # 3.17 Lymph # (Auto) 3.5 H Addison # (Auto) 0.6 Eos # (Auto) 0.3 Baso # (Auto) 0.02 pCO2 pO2 126 H HCO3 ABG pH ABG Total CO2 ABG O2 Saturation ABG O2 Content ABG Base Excess ABG Hemoglobin ABG Carboxyhemoglobin POC ABG HHb (Measured) ABG Methemoglobin ABG O2 Capacity VBG pH 7.32 VBG pCO2 65.0 H VBG HCO3 33.5 H VBG Total CO2 35.5 H VBG O2 Sat (Calc) 98.4 H VBG Base Excess 5.3 H VBG Potassium 3.7 Hgb O2 Saturation Sodium 139.0 Chloride 103.0 Glucose 126 H Lactate 1.8 FiO2 21.0 Potassium Carbon Dioxide Anion Gap BUN Creatinine Est GFR ( Amer) Est GFR (Non-Af Amer) POC Glucose (mg/dL) Random Glucose Calcium Phosphorus Magnesium Total Bilirubin AST ALT Alkaline Phosphatase Lactate Dehydrogenase Total Creatine Kinase Troponin I Total Protein Albumin Globulin Albumin/Globulin Ratio Venous Blood Potassium 3.7 Urine Color Yellow Urine Appearance Clear Urine pH 6.0 Ur Specific [place] 1.015 Urine Protein Negative Urine Glucose (UA) Negative Urine Ketones Negative Urine Blood Negative Urine Nitrate Negative Urine Bilirubin Negative Urine Urobilinogen 0.2 Ur Leukocyte Esterase Negative Valproic Acid 10/18/17 10/18/17 10/18/17 06:00 06:00 07:18 WBC RBC Hgb Hct MCV MCH MCHC RDW Plt Count MPV Gran % Lymph % (Auto) Addison % (Auto) Eos % (Auto) Baso % (Auto) Gran # Lymph # (Auto) Addison # (Auto) Eos # (Auto) Baso # (Auto) pCO2 pO2 HCO3 ABG pH ABG Total CO2 ABG O2 Saturation ABG O2 Content ABG Base Excess ABG Hemoglobin ABG Carboxyhemoglobin POC ABG HHb (Measured) ABG Methemoglobin ABG O2 Capacity VBG pH VBG pCO2 VBG HCO3 VBG Total CO2 VBG O2 Sat (Calc) VBG Base Excess VBG Potassium Hgb O2 Saturation Sodium 142 Chloride 101 Glucose Lactate FiO2 Potassium 3.9 Carbon Dioxide 30 Anion Gap 15 BUN 14 Creatinine 0.7 L Est GFR ( Amer) > 60 Est GFR (Non-Af Amer) > 60 POC Glucose (mg/dL) 119 H Random Glucose 125 H Calcium 8.6 Phosphorus 4.5 Magnesium 1.6 L Total Bilirubin 0.2 AST 21 ALT 23 Alkaline Phosphatase 48 Lactate Dehydrogenase 418 Total Creatine Kinase 105 Troponin I 0.03 D Total Protein 6.2 Albumin 3.2 Globulin 3.0 Albumin/Globulin Ratio 1.1 Venous Blood Potassium Urine Color Urine Appearance Urine pH Ur Specific [place] Urine Protein Urine Glucose (UA) Urine Ketones Urine Blood Urine Nitrate Urine Bilirubin Urine Urobilinogen Ur Leukocyte Esterase Valproic Acid 30 L 10/18/17 09:39 WBC RBC Hgb Hct MCV MCH MCHC RDW Plt Count MPV Gran % Lymph % (Auto) Addison % (Auto) Eos % (Auto) Baso % (Auto) Gran # Lymph # (Auto) Addison # (Auto) Eos # (Auto) Baso # (Auto) pCO2 60 H pO2 113.0 H HCO3 33.9 H ABG pH 7.36 ABG Total CO2 35.7 H ABG O2 Saturation 98.4 H ABG O2 Content 16.8 ABG Base Excess 6.7 H ABG Hemoglobin 12.2 ABG Carboxyhemoglobin 1.1 POC ABG HHb (Measured) 1.6 ABG Methemoglobin 0.6 ABG O2 Capacity 17.1 VBG pH VBG pCO2 VBG HCO3 VBG Total CO2 VBG O2 Sat (Calc) VBG Base Excess VBG Potassium Hgb O2 Saturation 96.8 Sodium Chloride Glucose Lactate FiO2 30.0 Potassium Carbon Dioxide Anion Gap BUN Creatinine Est GFR ( Amer) Est GFR (Non-Af Amer) POC Glucose (mg/dL) Random Glucose Calcium Phosphorus Magnesium Total Bilirubin AST ALT Alkaline Phosphatase Lactate Dehydrogenase Total Creatine Kinase Troponin I Total Protein Albumin Globulin Albumin/Globulin Ratio Venous Blood Potassium Urine Color Urine Appearance Urine pH Ur Specific [place] Urine Protein Urine Glucose (UA) Urine Ketones Urine Blood Urine Nitrate Urine Bilirubin Urine Urobilinogen Ur Leukocyte Esterase Valproic Acid Assessment & Plan (1) Encephalopathy Assessment and Plan: Continue supportive care and avoid over medication. No focal neurological deficits noted. Will defer to psychiatry for medication management. Status: Acute Priority: High (2) Acute and chronic respiratory failure with hypercapnia Status: Acute (3) Drug overdose Status: Acute Priority: High (4) Overdose Status: Acute (5) Morbid obesity Status: Chronic (6) Schizophrenia Status: Chronic
[2017-10-18] MEDS: Albuterol-Ipratrop 3 mg / 0.5 (3 ml) UD IH SCH ×2 (13:01→20:33)
[2017-10-18 15:15] LABS: BARBITURATES, UR NEGATIVE (NEGATIVE); BENZODIAZEPINES, UR NEGATIVE (NEGATIVE); OPIATES, UR NEGATIVE (NEGATIVE); PHENCYCLIDINE, UR NEGATIVE (NEGATIVE)
[2017-10-18 15:54] LABS: TROPONIN I 0.02 ng/mL
[2017-10-18] MEDS: Budesonide 0.25 mg/2 ml Inhal Susp UD IH SCH (20:33)
--- NOTE | 2017-10-18 23:01 | CON ---
DATE: 10/18/2017 HISTORY OF PRESENT ILLNESS: The patient is a 47-year-old gentleman with history of psychiatric disorder who was found in altered mental status, wandering on the street, picked up by bystanders and brought into [facility] for further management. Subsequent workup did not reveal any intracranial hemorrhage or acute stroke. The patient was deemed not to be a candidate for t-PA. The patient was transferred to [facility] floor. Next day, ABG was done and revealed partially compensated respiratory acidosis with pCO2 in 60s. The patient very somnolent but easily arousable, alert and oriented x3. No fever, no chills, no sweats. No nausea, no vomiting, no diarrhea, no constipation. PAST MEDICAL HISTORY: Schizophrenia, asthma, morbid obesity, diabetes, hypertension, and gout. SOCIAL HISTORY No alcohol or illicit drug abuse. No tobacco smoking. ALLERGIES: NKDA. FAMILY HISTORY Noncontributory. MEDICATIONS: At home: Levaquin, Clozaril, Zocor, Diovan, metformin, Zestril, indomethacin, haloperidol, Depakote, colchicine, Cogentin, and aspirin. In the hospital: DuoNeb, aspirin, Lipitor, Cogentin, colchicine, Depakote, Lovenox for DVT prophylaxis, Haldol, indomethacin, lisinopril, metoprolol, Protonix, and valsartan. REVIEW OF SYSTEMS: Review of 12-organ system other than mentioned in history of present illness is negative. PHYSICAL EXAMINATION: VITAL SIGNS: Temperature 98.2, heart rate 81, blood pressure 123/96, respiratory rate 18, oxygen saturation 100% on nasal cannula. HEENT: Head and neck atraumatic. LUNGS: Clear to auscultation bilaterally. HEART: Regular rate and rhythm. S1 and S2 normal. ABDOMEN: Soft, nontender, nondistended. MUSCULOSKELETAL: The patient is morbidly obese. SKIN: Moist. PSYCHIATRIC: The patient is very somnolent but easily arousable and when so, oriented x3. LABORATORY DATA: WBC 7.5, hemoglobin 12.5, platelet count 231. Sodium 142, potassium 3.9, chloride 101, carbon dioxide 30, BUN 14, creatinine 0.7, glucose 125. AST 21, ALT 23, bilirubin 0.2. CPK 168. ABG showed 7.36/60/113 on 30% FiO2. Head CT showed no evidence of acute infarct. No intracranial mass or hemorrhage. Chest x-ray, no active pulmonary disease. ASSESSMENT AND PLAN: This is a 47-year-old gentleman with morbid obesity and compensated respiratory acidosis with CO2 retention, most likely secondary to obesity-hypoventilation syndrome. The patient reported to have history of asthma and possibility of ACOS cannot be discarded. At present time, the patient definitely needs nighttime BiPAP application. I will also start the patient on bronchodilators and low-dose of inhaled corticosteroids. Definitely eventual gradual weight loss would be beneficial for the patient and might lead to substantial improvement in his respiratory conditions. The patient might also have obstructive sleep apnea overlap with obesity hypoventilation syndrome. Thus upon discharge, sleep study, either split-study or full night PSG would be indicated. The patient needs deep vein thrombosis, gastrointestinal prophylaxis. Maintain euvolemia, euglycemia, and normothermia as well as oxygen saturation more than 90% would be recommended as well. The patient is protecting his airways, hemodynamically stable. ccm time 40 min Leonard Lee MD STELL[facility]
[2017-10-19] MEDS: Sodium Chloride 0.9% 1,000 ML IV SCH (01:00)
[2017-10-19] MEDS: Albuterol-Ipratrop 3 mg / 0.5 (3 ml) UD IH SCH ×4 (03:58→21:10)
[2017-10-19 06:43] LABS: ARTERIAL BLOOD GAS HEMOGLOBIN 6.3 g/dL (11.7-17.4); ARTERIAL BLOOD GAS O2 CAPACITY 9.2 mL/dl (16-24); ARTERIAL BLOOD GAS O2 CONTENT 9.1 ML/dl (15-23); ARTERIAL BLOOD GAS O2 SAT 98.7 % (95-98); ARTERIAL BLOOD GAS PCO2 32 mm/Hg (35-45); ARTERIAL BLOOD GAS PH 7.28 (7.35-7.45)
[2017-10-19 07:21] LABS: BASO # 0.01 K/mm3 (0.0-2.0); BASO % 0.2 % (0.0-3.0); EOS # 0.2 (0.0-0.7); EOS % 3.4 % (1.5-5.0); GRAN # 2.54 (1.4-6.5); GRAN % 41.2 % (50.0-68.0); HEMOGLOBIN 11.9 g/dL (14.0-18.0); LYMPH % 48.7 % (22.0-35.0); MEAN CELL VOLUME 89.1 fl (80.0-105.0); MEAN CORPUSCULAR HEMOGLOBIN 27.7 pg (25.0-35.0); MEAN CORPUSCULAR HGB CONC 31.1 g/dl (31.0-37.0); MEAN PLATELET VOLUME 9.3 fl (7.0-11.0); MONO # 0.4 (0.1-0.6); MONO % 6.5 % (1.0-6.0); RBC 4.3 10^6/uL (3.5-6.1); RED CELL DISTRIBUTION WIDTH 13.6 % (11.5-14.5); WHITE BLOOD COUNT 6.2 10^3/ul (4.5-11.0)
--- NOTE | 2017-10-19 07:31 | CP.PCM.PN ---
Subjective - Date & Time of Evaluation Date of Evaluation: 10/19/17 Time of Evaluation: 07:29 - Subjective Subjective: Mr. Mccurdy was seen and examined at the bedside. He is alert, oriented in all spheres. He is on a bipap machine which he is able to tolerate it. He denies any headache, dizziness, lightheadedness, nausea, or vomiting. He is able to follow simple commands such as field accommodation, raising his bilateral upper and lower extremities. He further states of being at his baseline. There was no untoward events overnight. Objective - Vital Signs/Intake and Output Vital Signs (last 24 hours): Temp Pulse Resp BP Pulse Ox 98.5 F 79 22 119/63 96 10/19/17 06:00 10/19/17 06:00 10/19/17 06:00 10/19/17 06:00 10/19/17 06:00 Intake and Output: 10/19/17 10/19/17 06:59 18:59 Intake Total 520 Output Total 1000 Balance -480 - Medications Medications: Current Medications Albuterol/Ipratropium (Duoneb 3 Mg/0.5 Mg (3 Ml) Ud) 3 ml IH Q2H PRN PRN Reason: Shortness of Breath Albuterol/Ipratropium (Duoneb 3 Mg/0.5 Mg (3 Ml) Ud) 3 ml IH [id number] [facility] Last Admin: 10/19/17 03:58 Dose: 3 ml Aspirin (Ecotrin) 81 mg PO DAILY [facility] Last Admin: 10/18/17 14:04 Dose: 81 mg Atorvastatin Calcium (Lipitor) 20 mg PO DIN [facility] Last Admin: 10/18/17 17:34 Dose: 20 mg Benztropine Mesylate (Cogentin) 1 mg PO HS [facility] Last Admin: 10/18/17 21:16 Dose: 1 mg Budesonide (Pulmicort Respules) 0.25 mg IH [id number] [facility] Last Admin: 10/18/17 20:33 Dose: 0.25 mg Colchicine (Colocrys) 0.6 mg PO DAILY [facility] Last Admin: 10/18/17 14:02 Dose: 0.6 mg Divalproex Sodium (Depakote Er(Once Daily)) 500 mg PO DAILY [facility] PRN Reason: Protocol Enoxaparin Sodium (Lovenox) 40 mg SC DAILY [facility] PRN Reason: Protocol Last Admin: 10/18/17 10:15 Dose: 40 mg Haloperidol (Haldol) 5 mg PO HS [facility] PRN Reason: Protocol Last Admin: 10/18/17 21:16 Dose: 5 mg Indomethacin (Indocin) 25 mg PO TID PRN PRN Reason: Pain, moderate (4-7) Insulin Human Regular (Humulin R Low) 0 units SC ACHS [facility] PRN Reason: Protocol Last Admin: 10/18/17 22:45 Dose: Not Given Lisinopril (Zestril) 30 mg PO DAILY [facility] Last Admin: 10/18/17 14:02 Dose: 30 mg Metoprolol Tartrate (Lopressor) 5 mg IVP Q6H PRN PRN Reason: systolic BP > 160 Pantoprazole Sodium (Protonix Ec Tab) 40 mg PO ACB [facility] Last Admin: 10/18/17 14:03 Dose: 40 mg Valsartan (Diovan) 320 mg PO DAILY [facility] Last Admin: 10/18/17 14:04 Dose: 320 mg - Labs Labs: 10/19/17 06:30 10/18/17 06:00 PT 12.2 SECONDS (9.4-12.5) 10/17/17 18:36 INR 1.07 (0.93-1.08) 10/17/17 18:36 APTT 32.5 Seconds (25.1-36.5) 10/17/17 18:36 - Constitutional Appears: No Acute Distress - Head Exam Head Exam: NORMAL INSPECTION - Neurological Exam Neurological Exam: Alert, Awake, Oriented x3 Neuro motor strength exam: Left Upper Extremity: 5, Right Upper Extremity: 5, Left Lower Extremity: 5, Right Lower Extremity: 5 Additional comments: He is alert, oriented, follows commands, and sensation is intact. Assessment and Plan (1) Encephalopathy Assessment & Plan: Case discussed with Dr. Ott, continue all current medical regimen. There is no new recommendations from neurology. Status: Acute
[2017-10-19 07:36] LABS: ALB/GLOB RATIO 1.1 (1.1-1.8); ALBUMIN 3.1 g/dL (3.0-4.8); ALT/SGPT 21 U/L (7-56); AST/SGOT 16 U/L (17-59); BLOOD UREA NITROGEN 14 mg/dL (7-21); CALCIUM 8.4 mg/dL (8.4-10.5); GFR AFRICAN-AMERICAN > 60; GFR NON-AFRICAN AMERICAN > 60; HDL CHOLESTEROL 22 mg/dL (29-60)
[2017-10-19 07:46] LABS: LDL CHOLESTEROL < 30 mg/dL (0-129)
[2017-10-19] MEDS: Insulin Reg-LOW-Coverage SC SCH ×4 (07:54→23:29)
[2017-10-19] MEDS: Pantoprazole 40 mg EC Tab PO SCH (08:09)
[2017-10-19] MEDS: Budesonide 0.25 mg/2 ml Inhal Susp UD IH SCH ×2 (08:21→21:10)
[2017-10-19] MEDS ORDERED: Divalproex 500 mg ER (ONCE DAILY formulation) PO SCH (10:00)
[2017-10-19] MEDS: Enoxaparin 40 mg Syringe SC SCH (10:01)
--- NOTE | 2017-10-19 12:19 | CP.PCM.PN ---
<Wilbert Osei - Last Filed: 10/19/17 12:16> Subjective - Date & Time of Evaluation Date of Evaluation: 10/19/17 Time of Evaluation: 09:35 - Subjective Subjective: Subjective: Patient seen and examined at bedside. Resting comfortably in bed. No acute events overnight. Bipap well tolerated. Signifance of BiPAP explained to patient. Offers no new complaints at this time. Denies fever, chills, chest pain , shortness of breath, abdominal pain, nausea, vomiting, diarrhea, constipation , and urinary symptoms. 12-point review of systems negative except as indicated in the HPI Physical Examination: - Constitutional Appears: Well - Head Exam Head Exam: ATRAUMATIC, NORMAL INSPECTION, NORMOCEPHALIC - Eye Exam Eye Exam: EOMI, Normal appearance, PERRL - ENT Exam ENT Exam: Mucous Membranes Moist, Normal Exam - Neck Exam Neck exam: Positive for: Normal Inspection - Respiratory Exam Respiratory Exam: Clear to Auscultation Bilateral, NORMAL BREATHING PATTERN - Cardiovascular Exam Cardiovascular Exam: REGULAR RHYTHM - GI/Abdominal Exam GI & Abdominal Exam: Normal Bowel Sounds, Soft. absent: Tenderness - Extremities Exam Extremities exam: Positive for: normal inspection - Neurological Exam Neurological exam: Patient is awake, alert, responds to verbal stimuli, answers questions appropriately, follows commands, and moves extremities past midline - Psychiatric Exam Psychiatric exam: Normal Affect, Normal Mood - Skin Skin Exam: Dry, Intact, Normal Color, Warm Assessment and Plan: Patient is a 47 year old male with pertinent medical history of schizoaffective , seizures, and medication overdoses who was admitted for evaluation and treatment of altered mental status. Received Narcan in the ED, two doses, after which he appeared to become more responsive. Altered Mental Status - possibly 2/2 medication overdose - head CT and Hand and Neck CTA negative for stroke - depakote level normal - ammonia level normal - psychiatry consulted- appreciate recommendations- started patient on cogentin , depakote, and haloperidol - Neurology consulted- no new intervention at this time - UDS ordered and pending - Fall, Seizure, Aspiration protocols - NPO diet - Troponin was negative, EKG did not show ST/T changes. H/O Schizoaffective disorder - Psychiatry consulted- appreciate recommendations- started clozapine; c/w cogentin, depakote, and haloperidol DM - ISS low - Accuchecks q6h HTN - Cont home med: Lisinopril and valsartan H/O Asthma - Likely dx of JHONY as well - Cont BIPAP HS - Duonebs PRN GI/DVT prophylaxis - Prilosec/Lovenox Case management consulted: will require home bipap Patient seen, case discussed with, and plan approved by attending physician Objective - Vital Signs/Intake and Output Vital Signs (last 24 hours): Temp Pulse Resp BP Pulse Ox 98.5 F 79 22 125/77 96 10/19/17 06:00 10/19/17 10:00 10/19/17 06:00 10/19/17 10:00 10/19/17 06:00 Intake and Output: 10/19/17 10/19/17 06:59 18:59 Intake Total 520 Output Total 1000 Balance -480 - Medications Medications: Current Medications Albuterol/Ipratropium (Duoneb 3 Mg/0.5 Mg (3 Ml) Ud) 3 ml IH Q2H PRN PRN Reason: Shortness of Breath Albuterol/Ipratropium (Duoneb 3 Mg/0.5 Mg (3 Ml) Ud) 3 ml IH [id number] [facility] Last Admin: 10/19/17 08:20 Dose: 3 ml Aspirin (Ecotrin) 81 mg PO DAILY [facility] Last Admin: 10/19/17 10:00 Dose: 81 mg Atorvastatin Calcium (Lipitor) 20 mg PO DIN [facility] Last Admin: 10/18/17 17:34 Dose: 20 mg Benztropine Mesylate (Cogentin) 1 mg PO AMHS [facility] Budesonide (Pulmicort Respules) 0.25 mg IH [id number] [facility] Last Admin: 10/19/17 08:21 Dose: 0.25 mg Clozapine (Clozaril) 50 mg PO [facility] PRN Reason: Protocol Colchicine (Colocrys) 0.6 mg PO DAILY [facility] Last Admin: 10/19/17 10:00 Dose: 0.6 mg Divalproex Sodium (Depakote Er(Once Daily)) 1,000 mg PO DAILY [facility] PRN Reason: Protocol Enoxaparin Sodium (Lovenox) 40 mg SC DAILY [facility] PRN Reason: Protocol Last Admin: 10/19/17 10:01 Dose: 40 mg Haloperidol (Haldol) 5 mg PO AMHS [facility] PRN Reason: Protocol Indomethacin (Indocin) 25 mg PO TID PRN PRN Reason: Pain, moderate (4-7) Insulin Human Regular (Humulin R Low) 0 units SC ACHS [facility] PRN Reason: Protocol Last Admin: 10/19/17 11:43 Dose: Not Given Lisinopril (Zestril) 30 mg PO DAILY [facility] Last Admin: 10/19/17 10:00 Dose: 30 mg Metoprolol Tartrate (Lopressor) 5 mg IVP Q6H PRN PRN Reason: systolic BP > 160 Pantoprazole Sodium (Protonix Ec Tab) 40 mg PO ACB [facility] Last Admin: 10/19/17 08:09 Dose: 40 mg Valsartan (Diovan) 320 mg PO DAILY [facility] Last Admin: 10/19/17 10:00 Dose: 320 mg - Labs Labs: 10/19/17 06:30 10/19/17 06:30 PT 12.2 SECONDS (9.4-12.5) 10/17/17 18:36 INR 1.07 (0.93-1.08) 10/17/17 18:36 APTT 32.5 Seconds (25.1-36.5) 10/17/17 18:36 <Michael Davis - Last Filed: 10/19/17 13:02> Objective - Vital Signs/Intake and Output Vital Signs (last 24 hours): Temp Pulse Resp BP Pulse Ox 98.5 F 79 22 125/77 96 10/19/17 06:00 10/19/17 10:00 10/19/17 06:00 10/19/17 10:00 10/19/17 06:00 Intake and Output: 10/19/17 10/19/17 06:59 18:59 Intake Total 520 Output Total 1000 Balance -480 - Medications Medications: Current Medications Albuterol/Ipratropium (Duoneb 3 Mg/0.5 Mg (3 Ml) Ud) 3 ml IH Q2H PRN PRN Reason: Shortness of Breath Albuterol/Ipratropium (Duoneb 3 Mg/0.5 Mg (3 Ml) Ud) 3 ml IH [id number] [facility] Last Admin: 10/19/17 08:20 Dose: 3 ml Aspirin (Ecotrin) 81 mg PO DAILY [facility] Last Admin: 10/19/17 10:00 Dose: 81 mg Atorvastatin Calcium (Lipitor) 20 mg PO DIN [facility] Last Admin: 10/18/17 17:34 Dose: 20 mg Benztropine Mesylate (Cogentin) 1 mg PO AMHS [facility] Budesonide (Pulmicort Respules) 0.25 mg IH [id number] [facility] Last Admin: 10/19/17 08:21 Dose: 0.25 mg Clozapine (Clozaril) 50 mg PO AMHS [facility] PRN Reason: Protocol Colchicine (Colocrys) 0.6 mg PO DAILY [facility] Last Admin: 10/19/17 10:00 Dose: 0.6 mg Divalproex Sodium (Depakote Er(Once Daily)) 1,000 mg PO DAILY [facility] PRN Reason: Protocol Enoxaparin Sodium (Lovenox) 40 mg SC DAILY [facility] PRN Reason: Protocol Last Admin: 10/19/17 10:01 Dose: 40 mg Haloperidol (Haldol) 5 mg PO [facility] PRN Reason: Protocol Indomethacin (Indocin) 25 mg PO TID PRN PRN Reason: Pain, moderate (4-7) Insulin Human Regular (Humulin R Low) 0 units SC [facility] PRN Reason: Protocol Last Admin: 10/19/17 11:43 Dose: Not Given Lisinopril (Zestril) 30 mg PO DAILY [facility] Last Admin: 10/19/17 10:00 Dose: 30 mg Metoprolol Tartrate (Lopressor) 5 mg IVP Q6H PRN PRN Reason: systolic BP > 160 Pantoprazole Sodium (Protonix Ec Tab) 40 mg PO ACB [facility] Last Admin: 10/19/17 08:09 Dose: 40 mg Valsartan (Diovan) 320 mg PO DAILY [facility] Last Admin: 10/19/17 10:00 Dose: 320 mg - Labs Labs: 10/19/17 06:30 10/19/17 06:30 PT 12.2 SECONDS (9.4-12.5) 10/17/17 18:36 INR 1.07 (0.93-1.08) 10/17/17 18:36 APTT 32.5 Seconds (25.1-36.5) 10/17/17 18:36 Attending/Attestation - Attestation I have personally seen and examined this patient.: Yes I have fully participated in the care of the patient.: Yes I have reviewed all pertinent clinical information, including history, physical exam and plan: Yes Notes (Text): I have seen and examined the patient at bedside. Agree with the above note with the following additions/ exceptions: Briefly this is 47 year old male with history of schizoaffective disorder, morbid obesity, seizures, and medication overdoses who was admitted for evaluation and treatment of altered mental status. Received Narcan in the ED, two doses, after which he appeared to become more responsive. Currently he is awake and alert and is able to answer questions. He does not have any focal deficits. CT and CTA negative. Depakote and ammonia level normal. UDS still pending. EKG reviewed. Awaiting for psych consult. Continue bipap in the night. Continue antihypertensive meds. Patient is tolerating diet. Upon discharge the patient will follow up with PMD Dr. Mccall.
--- NOTE | 2017-10-20 00:52 | PN ---
DATE: 10/19/2017 SUBJECTIVE: The patient is seen and examined at the bedside. He is comfortable. He talks in full sentences. He is much more alert and awake. He just finished his dinner. He is wishing to eat. PHYSICAL EXAMINATION: VITAL SIGNS: Temperature 97.4, blood pressure 128/88, respiratory rate 20, heart rate 76, oxygen saturation 96% on 2 L nasal cannula. HEENT: Head and neck atraumatic. LUNGS: Clear to auscultation bilaterally. HEART: Regular rate and rhythm. S1 and S2 normal. ABDOMEN: Soft, nontender and nondistended. MUSCULOSKELETAL EXAM: Trace to 1+ bilateral pedal and ankle edema. SKIN: Moist. PSYCH: The patient is alert, awake and oriented x3, much more awake than yesterday. LABORATORY DATA: WBC 6.2, hemoglobin 11.9, platelet count 282. Sodium 131, potassium 3.9, chloride 100, carbon dioxide 35, BUN 14, creatinine 0.7, glucose 127. MEDICATIONS: DuoNeb every six hours, aspirin, Lipitor, Cogentin, Pulmicort 0.25 inhaled every 12 , clozapine, colchicine, Depakote, Lovenox 40 mg subcu daily, Indocin daily and regular insulin sliding scale medium protocol, lisinopril, metoprolol, Protonix, valsartan. ASSESSMENT AND PLAN: This 47-year-old gentleman who been consulted by Pulmonary Service for his asthma/ACOS/JHONY/OHS. At present time, the patient is on bronchodilators every six hours, inhaled corticosteroids, bilevel positive airway pressure at night. He appears to be much more alert and awake and we will continue with bilevel positive airway pressure at night application. We will continue target euvolemia, euglycemia, normothermia and oxygen saturation more than 90%. Upon discharge the patient would need polysomnography. Regular weight watch is also recommended. Leonard Lee MD MTD[facility]ida
[2017-10-20] MEDS: Albuterol-Ipratrop 3 mg / 0.5 (3 ml) UD IH SCH ×4 (02:35→20:09)
[2017-10-20 07:34] LABS: BASO # 0.01 K/mm3 (0.0-2.0); BASO % 0.2 % (0.0-3.0); EOS # 0.2 (0.0-0.7); EOS % 3.6 % (1.5-5.0); GRAN # 2.31 (1.4-6.5); GRAN % 39.6 % (50.0-68.0); HEMOGLOBIN 11.8 g/dL (14.0-18.0); LYMPH # 2.8 (1.2-3.4); LYMPH % 47.9 % (22.0-35.0); MEAN CELL VOLUME 88.8 fl (80.0-105.0); MEAN CORPUSCULAR HEMOGLOBIN 28.2 pg (25.0-35.0); MEAN CORPUSCULAR HGB CONC 31.7 g/dl (31.0-37.0); MEAN PLATELET VOLUME 9.3 fl (7.0-11.0); MONO # 0.5 (0.1-0.6); MONO % 8.7 % (1.0-6.0); RBC 4.19 10^6/uL (3.5-6.1); RED CELL DISTRIBUTION WIDTH 13.4 % (11.5-14.5); WHITE BLOOD COUNT 5.8 10^3/ul (4.5-11.0)
[2017-10-20 07:49] LABS: ALB/GLOB RATIO 1.1 (1.1-1.8); ALBUMIN 3.2 g/dL (3.0-4.8); ALT/SGPT 25 U/L (7-56); AST/SGOT 17 U/L (17-59); BLOOD UREA NITROGEN 15 mg/dL (7-21); CALCIUM 8.7 mg/dL (8.4-10.5); GFR AFRICAN-AMERICAN > 60; GFR NON-AFRICAN AMERICAN > 60
[2017-10-20] MEDS: Insulin Reg-LOW-Coverage SC SCH ×4 (08:01→23:37)
[2017-10-20] MEDS: Budesonide 0.25 mg/2 ml Inhal Susp UD IH SCH ×2 (08:01→20:09)
[2017-10-20] MEDS: Pantoprazole 40 mg EC Tab PO SCH (08:25)
--- NOTE | 2017-10-20 08:35 | CON ---
DATE: 10/18/2017 HISTORY OF PRESENT ILLNESS: The patient is a 47-year-old single -Thai male with a long history of schizoaffective disorder, numerous hospitalizations to [facility] voluntarily and involuntarily as well as hospitalizations at [facility], history of noncompliance with medication; however, currently being followed at [facility] by PACT Team V, recently seen by Psychiatry in 04/2017 on the medical floor the patient had overdosed on Depakote, likely unintentional, who was brought to the [facility] ER after he was found by bystanders wandering in the street barefoot. He was admitted to the medical floor for altered mental status. I am very familiar with patient due to treating the patient at [facility] on the Psychiatric Inpatient Unit. Patient has a history of disorganization, paranoia, hallucination, agitation and violence when he decompensates. Patient was seen by this provider in 04/2017 and I recommended screening by [facility], as he appeared to be baseline; however, screeners came and did not find him to be committable. Patient was hospitalized also in 01/2017 at [facility]. I met with him at bedside again today and spoke with nursing. Apparently, patient has been in fair control in the unit, though lethargic. He has been waking up most of the time during the night, which could explain his sedation. He has not been restarted on his psychiatric medications and at this time his provider does not know what they are, though he was treated with Clozaril, Depakote, Cogentin and Haldol during his prior admission and doses were confirmed with PACT at that time. I tried to elicit the patient's cooperation willing to engage in a conversation with his provider briefly ____ he is aware that he is at [facility] for trouble breathing and he knows that it is 09/2017. He tells me that he has been taking his medication and he is being followed by PACT. He does not know his medication list. He denies having any hallucinations. He reports that he is depressed, not suicidal. I cannot thoroughly assess his thought process; however, the patient does deny hallucinations. He does not paranoid; however, he is not completely alert either. His insight and judgement considered to be poor due to the current sedated state. PSYCHIATRIC HISTORY: As noted above, patient has numerous hospitalizations at [facility] both involuntarily and voluntarily. Patient has been hospitalized involuntarily at [facility] on a number of occasions. [phone] and most prior medication doses that were confirmed in 04/2017 were Clozaril 200 mg a.m. and 250 mg at bedtime, Depakote ER 1250 mg daily, Cogentin 2 mg daily and Haldol 10 mg daily. Patient also uses a BiPAP. The patient does have a history of agitation and has required security on the inpatient unit a few times due to impulsiveness and paranoia, and anger. He also has a history of noncompliance throughout many years of psychiatric treatment. SOCIAL HISTORY: Wholly unknown as the patient is not able to answer questions in this regard. Patient does have history of living with his family in the past. MEDICATIONS: Of note, patient is not on any psychiatric medications at this time. Vital signs reviewed by this provider. Laboratory work was also reviewed by this provider. Of note, toxicology was not obtained although this was within the patient's mental status. IMPRESSION: Schizoaffective disorder by history, medical causes, ruled out accidental overdose of medications, though Depakote level does not support this, rule out substance induced mood and psychotic disorder. RECOMMENDATIONS: 1. Psychiatry will continue to follow up with the patient. I have left a voice mail with PACT at [phone] at 10 a.m. on 10/18/2017 requesting call back with patient's medication list. I provided my cell phone number twice for this purpose. 2. At this time, I will conservatively start medications of patient; however, he is sedated and in this respect, it will be started at very low doses, for example, Haldol will be started at Haldol 5 mg at bedtime, Cogentin will be 1 mg at bedtime, Clozaril will be held as it is unclear whether he is still taking it and Depakote will be started at 500 mg daily ER. 3. Psychiatry will continue to follow up with the patient and assess the patient's mental status, tolerance to medication and progress of any overt psychotic symptoms. Tristan Moreno MD [facility] # [id number]
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
[2017-10-20] MEDS: Divalproex 500 mg ER (ONCE DAILY formulation) PO SCH (09:33)
[2017-10-20] MEDS: Enoxaparin 40 mg Syringe SC SCH (09:34)
--- NOTE | 2017-10-20 12:26 | CP.PCM.PN ---
<Wilbert Osei - Last Filed: 10/20/17 12:14> Subjective - Date & Time of Evaluation Date of Evaluation: 10/20/17 Time of Evaluation: 11:00 - Subjective Subjective: Subjective: Patient seen and examined at bedside. Resting comfortably in bed. No acute events overnight. Patient lethargic. Able to be awakened. Answers questions appropriately. Bipap well tolerated. Offers no new complaints at this time. Denies fever, chills, chest pain, shortness of breath, abdominal pain, nausea, vomiting, diarrhea, constipation, and urinary symptoms. 12-point review of systems negative except as indicated in the HPI Physical Examination: - Constitutional Appears: Well - Head Exam Head Exam: ATRAUMATIC, NORMAL INSPECTION, NORMOCEPHALIC - Eye Exam Eye Exam: EOMI, Normal appearance, PERRL - ENT Exam ENT Exam: Mucous Membranes Moist, Normal Exam - Neck Exam Neck exam: Positive for: Normal Inspection - Respiratory Exam Respiratory Exam: Clear to Auscultation Bilateral, NORMAL BREATHING PATTERN - Cardiovascular Exam Cardiovascular Exam: REGULAR RHYTHM - GI/Abdominal Exam GI & Abdominal Exam: Normal Bowel Sounds, Soft. absent: Tenderness - Extremities Exam Extremities exam: Positive for: normal inspection - Neurological Exam Neurological exam: Patient is lethargic however can be awakened, responds to verbal stimuli, answers questions appropriately, follows commands, and moves extremities past midline - Psychiatric Exam Psychiatric exam: Normal Affect, Normal Mood - Skin Skin Exam: Dry, Intact, Normal Color, Warm Assessment and Plan: Patient is a 47 year old male with pertinent medical history of schizoaffective , seizures, and medication overdoses who was admitted for evaluation and treatment of altered mental status. Received Narcan in the ED, two doses, after which he appeared to become more responsive. Altered Mental Status - possibly 2/2 medication overdose - head CT and Hand and Neck CTA negative for stroke - depakote level normal - ammonia level normal - psychiatry consulted- appreciate recommendations- started patient on cogentin , depakote, and haloperidol - Neurology consulted- no new intervention at this time - UDS ordered and pending - Fall, Seizure, Aspiration protocols - NPO diet - Troponin was negative, EKG did not show ST/T changes. H/O Schizoaffective disorder - Psychiatry consulted- appreciate recommendations- will await further recs regarding cogentin, depakote, and haloperidol DM - ISS low - Accuchecks q6h HTN - Cont home med: Lisinopril and valsartan H/O Asthma - Likely dx of JHONY as well - Cont BIPAP HS - Duonebs PRN GI/DVT prophylaxis - Prilosec/Lovenox Case management consulted: will require home bipap Patient seen, case discussed with, and plan approved by attending physician. Objective - Vital Signs/Intake and Output Vital Signs (last 24 hours): Temp Pulse Resp BP Pulse Ox 98.1 F 79 22 135/81 97 10/20/17 05:54 10/20/17 09:33 10/20/17 05:54 10/20/17 09:33 10/20/17 05:54 Intake and Output: 10/20/17 10/20/17 06:59 18:59 Intake Total 560 Output Total 1200 Balance -640 - Medications Medications: Current Medications Albuterol/Ipratropium (Duoneb 3 Mg/0.5 Mg (3 Ml) Ud) 3 ml IH Q2H PRN PRN Reason: Shortness of Breath Albuterol/Ipratropium (Duoneb 3 Mg/0.5 Mg (3 Ml) Ud) 3 ml IH [id number] [facility] Last Admin: 10/20/17 08:01 Dose: 3 ml Aspirin (Ecotrin) 81 mg PO DAILY [facility] Last Admin: 10/20/17 09:32 Dose: 81 mg Atorvastatin Calcium (Lipitor) 20 mg PO DIN [facility] Last Admin: 10/19/17 17:07 Dose: 20 mg Benztropine Mesylate (Cogentin) 1 mg PO AMHS [facility] Last Admin: 10/20/17 09:33 Dose: 1 mg Budesonide (Pulmicort Respules) 0.25 mg IH [id number] [facility] Last Admin: 10/20/17 08:01 Dose: 0.25 mg Clozapine (Clozaril) 100 mg PO HS MEG PRN Reason: Protocol Clozapine (Clozaril) 50 mg PO DAILY [facility] PRN Reason: Protocol Last Admin: 10/20/17 09:41 Dose: 50 mg Colchicine (Colocrys) 0.6 mg PO DAILY [facility] Last Admin: 10/20/17 09:34 Dose: 0.6 mg Divalproex Sodium (Depakote Er(Once Daily)) 1,000 mg PO DAILY [facility] PRN Reason: Protocol Last Admin: 10/20/17 09:33 Dose: 1,000 mg Enoxaparin Sodium (Lovenox) 40 mg SC DAILY [facility] PRN Reason: Protocol Last Admin: 10/20/17 09:34 Dose: 40 mg Haloperidol (Haldol) 5 mg PO AMHS MEG PRN Reason: Protocol Last Admin: 10/20/17 09:32 Dose: 5 mg Indomethacin (Indocin) 25 mg PO TID PRN PRN Reason: Pain, moderate (4-7) Last Admin: 10/19/17 20:44 Dose: 25 mg Insulin Human Regular (Humulin R Low) 0 units SC ACHS MEG PRN Reason: Protocol Last Admin: 10/20/17 08:01 Dose: Not Given Lisinopril (Zestril) 30 mg PO DAILY [facility] Last Admin: 10/20/17 09:33 Dose: 30 mg Metoprolol Tartrate (Lopressor) 5 mg IVP Q6H PRN PRN Reason: systolic BP > 160 Pantoprazole Sodium (Protonix Ec Tab) 40 mg PO ACB [facility] Last Admin: 10/20/17 08:25 Dose: 40 mg Valsartan (Diovan) 320 mg PO DAILY [facility] Last Admin: 10/20/17 09:33 Dose: 320 mg - Labs Labs: 10/20/17 07:00 10/20/17 07:00 PT 12.2 SECONDS (9.4-12.5) 10/17/17 18:36 INR 1.07 (0.93-1.08) 10/17/17 18:36 APTT 32.5 Seconds (25.1-36.5) 10/17/17 18:36 <Marilee Wade - Last Filed: 10/20/17 16:24> Objective - Vital Signs/Intake and Output Vital Signs (last 24 hours): Temp Pulse Resp BP Pulse Ox 98 F 75 20 134/81 97 10/20/17 12:00 10/20/17 12:00 10/20/17 12:00 10/20/17 12:00 10/20/17 05:54 Intake and Output: 10/20/17 10/20/17 06:59 18:59 Intake Total 560 Output Total 1200 Balance -640 - Medications Medications: Current Medications Albuterol/Ipratropium (Duoneb 3 Mg/0.5 Mg (3 Ml) Ud) 3 ml IH Q2H PRN PRN Reason: Shortness of Breath Albuterol/Ipratropium (Duoneb 3 Mg/0.5 Mg (3 Ml) Ud) 3 ml IH [id number] [facility] Last Admin: 10/20/17 13:12 Dose: 3 ml Aspirin (Ecotrin) 81 mg PO DAILY [facility] Last Admin: 10/20/17 09:32 Dose: 81 mg Atorvastatin Calcium (Lipitor) 20 mg PO DIN [facility] Last Admin: 10/19/17 17:07 Dose: 20 mg Benztropine Mesylate (Cogentin) 1 mg PO AMHS [facility] Last Admin: 10/20/17 09:33 Dose: 1 mg Budesonide (Pulmicort Respules) 0.25 mg IH [id number] [facility] Last Admin: 10/20/17 08:01 Dose: 0.25 mg Clozapine (Clozaril) 100 mg PO HS [facility] PRN Reason: Protocol Clozapine (Clozaril) 50 mg PO DAILY [facility] PRN Reason: Protocol Last Admin: 10/20/17 09:41 Dose: 50 mg Colchicine (Colocrys) 0.6 mg PO DAILY [facility] Last Admin: 10/20/17 09:34 Dose: 0.6 mg Divalproex Sodium (Depakote Er(Once Daily)) 1,000 mg PO DAILY [facility] PRN Reason: Protocol Last Admin: 10/20/17 09:33 Dose: 1,000 mg Enoxaparin Sodium (Lovenox) 40 mg SC DAILY [facility] PRN Reason: Protocol Last Admin: 10/20/17 09:34 Dose: 40 mg Haloperidol (Haldol) 5 mg PO AMHS [facility] PRN Reason: Protocol Last Admin: 10/20/17 09:32 Dose: 5 mg Indomethacin (Indocin) 25 mg PO TID PRN PRN Reason: Pain, moderate (4-7) Last Admin: 10/19/17 20:44 Dose: 25 mg Insulin Human Regular (Humulin R Low) 0 units SC ACHS [facility] PRN Reason: Protocol Last Admin: 10/20/17 13:51 Dose: 1 units Lisinopril (Zestril) 30 mg PO DAILY [facility] Last Admin: 10/20/17 09:33 Dose: 30 mg Metoprolol Tartrate (Lopressor) 5 mg IVP Q6H PRN PRN Reason: systolic BP > 160 Pantoprazole Sodium (Protonix Ec Tab) 40 mg PO ACB [facility] Last Admin: 10/20/17 08:25 Dose: 40 mg Valsartan (Diovan) 320 mg PO DAILY [facility] Last Admin: 10/20/17 09:33 Dose: 320 mg - Labs Labs: 10/20/17 07:00 10/20/17 07:00 PT 12.2 SECONDS (9.4-12.5) 10/17/17 18:36 INR 1.07 (0.93-1.08) 10/17/17 18:36 APTT 32.5 Seconds (25.1-36.5) 10/17/17 18:36 Attending/Attestation - Attestation I have personally seen and examined this patient.: Yes I have fully participated in the care of the patient.: Yes I have reviewed all pertinent clinical information, including history, physical exam and plan: Yes Notes (Text): 10/20/17 16:21 Attending note; Patient seen and examined with resident. patient was sleepy. But was able to answer questions appropriately. Patient is a 47 year old male with past medical history of schizoaffective disorder, obesity and history of medication overdoses who was admitted for evaluation and treatment of altered mental status. patient also had CO2 narcosis. Currently patient is on BiPAP. Alert and awake. Able to answer questions. Moving all extremities. CT head and CTA is negative. neurology evaluation appreciated. Schizoaffective disorder; case discussed with psychiatrist in detail. Medications adjusted by psychiatrist. Pact team was contacted by psychiatrist for follow-up plan. Hypertension; continue Diovan, metoprolol and lisinopril. Morbid obesity; possible obesity hypoventilation syndrome/JHONY. Continue BiPAP at night. Continue oxygen during daytime. Pulmonary evaluation appreciated. Case discussed with case maker for BiPAP arrangements. Possible discharge home tomorrow. Upon discharge the patient will follow up with PMD Dr. Mccall.
--- NOTE | 2017-10-20 20:11 | PN ---
DATE: 10/20/2017 SUBJECTIVE: In short, the patient is a 47-year-old -[place] male with multiple psychiatric admissions in the past. Currently, the patient is under PACT team. The patient was admitted on the medical site after the patient was found wandering as well as confused. The patient is currently on Clozaril, Haldol, Cogentin as well as Depakote. The patient is very familiar to this telegraphic typewriter operator chief from the multiple admissions to the medical site and consultation services. The patient was seen today, discussed case with medical attending, Dr. Wade as well as PACT bridge/structure inspection team leader, Libia. As per Libia, the patient was on Clozaril 400 mg daily as well as Haldol 10 mg daily as well as Depakote 1000 mg daily and Cogentin 2 mg daily. The patient is on monitoring for Clozaril. The patient seemed to be compliant with the medications, but this telegraphic typewriter operator chief is not sure what lead the patient's confusion and wandering on the street. Medications were resumed by Dr. Moreno, but this telegraphic typewriter operator chief assumes that Dr. Moreno was not aware of the doses of the medication and the patient was very sedated on the medical site. Vital signs seem to be stable. Temperature 98, pulse 75, blood pressure 134/81, respirations 20, oxygen saturation is 97. MEDICATIONS: Reviewed. DuoNeb, aspirin, Lipitor, Cogentin 1 mg twice a day, Pulmicort, Clozaril 50 mg daily and Clozaril 100 mg will be increased tonight. The patient is on colchicine 0.6 mg daily, Depakote 1000 mg daily, Lovenox, Haldol 5 mg twice a day,Indocin 25 mg three times a day, insulin, Zestril, Lopressor, Protonix, and Diovan. LABORATORY DATA: Reviewed. Chemistry reviewed. Depakote level was 30 at the time of admission, on 10/18/2017 but on 10/17/2017, the patient had Depakote level of 58. There were no signs of toxic level. MENTAL STATUS EXAMINATION: The patient presented to be alert, somewhat oddly related, flat affect, intermittent eye contact. The patient remembered that he was confused, but at present moment, the patient knows that he is in [facility]. Mood described, I'm feeling fine, I want to go home." Affect was constricted. Thought process concrete. Thought content, the patient denied visual, auditory, or tactile hallucinations. The patient denied paranoid ideation. The patient denied thoughts of harming himself or others. Denied intent or plan. Insight and judgment seem to be limited. Impulses are not predictable. IMPRESSION: Confusion, could be related to metabolic encephalopathy. The patient has history of schizophrenia, schizoaffective disorder. PLAN: Continue current management. Continue current medication. Clozaril was increased to 150 mg from 100 mg today. The patient was on 400 mg as per PACT team. The patient was resumed on Cogentin as well as Depakote as well as haloperidol. Discussed case with the medical team as well as PACT team, which visited the patient over the weekend. We will follow up on this patient tomorrow in order to have final determination what will be the disposition plan. So far, the patient does not meet the criteria to go to the Psychiatric Inpatient Unit. Terri Burris MD
[2017-10-21] MEDS: Albuterol-Ipratrop 3 mg / 0.5 (3 ml) UD IH SCH ×3 (01:40→14:00)
[2017-10-21 06:21] VITALS: TEMP 97.5; O2SAT 98
[2017-10-21 07:50] LABS: BASO # 0.01 K/mm3 (0.0-2.0); BASO % 0.2 % (0.0-3.0); EOS # 0.3 (0.0-0.7); EOS % 4.1 % (1.5-5.0); GRAN # 2.08 (1.4-6.5); GRAN % 34.4 % (50.0-68.0); HEMOGLOBIN 11.9 g/dL (14.0-18.0); LYMPH # 3.3 (1.2-3.4); MEAN CELL VOLUME 88.7 fl (80.0-105.0); MEAN CORPUSCULAR HEMOGLOBIN 27.9 pg (25.0-35.0); MEAN CORPUSCULAR HGB CONC 31.5 g/dl (31.0-37.0); MEAN PLATELET VOLUME 9.3 fl (7.0-11.0); MONO # 0.4 (0.1-0.6); MONO % 7.3 % (1.0-6.0); RBC 4.26 10^6/uL (3.5-6.1); RED CELL DISTRIBUTION WIDTH 13.4 % (11.5-14.5); WHITE BLOOD COUNT 6.1 10^3/ul (4.5-11.0)
[2017-10-21 07:56] LABS: ALB/GLOB RATIO 1.1 (1.1-1.8); ALBUMIN 3.5 g/dL (3.0-4.8); ALT/SGPT 30 U/L (7-56); AST/SGOT 21 U/L (17-59); BLOOD UREA NITROGEN 16 mg/dL (7-21); CALCIUM 8.7 mg/dL (8.4-10.5); GFR AFRICAN-AMERICAN > 60; GFR NON-AFRICAN AMERICAN > 60
[2017-10-21] MEDS: Budesonide 0.25 mg/2 ml Inhal Susp UD IH SCH (08:06)
[2017-10-21] MEDS: Insulin Reg-LOW-Coverage SC SCH (09:10)
[2017-10-21] MEDS: Divalproex 500 mg ER (ONCE DAILY formulation) PO SCH (09:12)
[2017-10-21] MEDS: Pantoprazole 40 mg EC Tab PO SCH (09:12)
[2017-10-21 11:43] VITALS: BP 161/107
[2017-10-21] MEDS: Enoxaparin 40 mg Syringe SC SCH (11:51)
--- NOTE | 2017-10-21 12:03 | CP.PCM.DIS ---
<Wilbert Osei - Last Filed: 10/21/17 12:50> Provider - Provider Date of Admission: 10/17/17 21:40 Attending physician: Marilee Wade MD Time Spent in preparation of Discharge (in minutes): 45 Diagnosis - Discharge Diagnosis (1) Altered mental status Status: Resolved Priority: Medium (2) COPD (chronic obstructive pulmonary disease) Status: Chronic Priority: High (3) Obesity hypoventilation syndrome Status: Chronic Priority: High (4) Schizoaffective disorder Status: Chronic Priority: Medium (5) Morbid obesity Status: Chronic Priority: Medium (6) Seizure Status: Chronic Priority: Medium (7) Diabetes Status: Chronic Priority: Medium (8) Hypertension Status: Chronic Priority: Medium (9) Asthma Status: Chronic Priority: Medium Hospital Course - Lab Results Lab Results: Micro Results 10/18/17 10:10 Urine Urine Culture - Final No Growth (<1,000 CFU/ML) Most Recent Lab Values WBC 6.1 10^3/ul (4.5-11.0) 10/21/17 07:00 RBC 4.26 10^6/uL (3.5-6.1) 10/21/17 07:00 Hgb 11.9 g/dL (14.0-18.0) L 10/21/17 07:00 Hct 37.8 % (42.0-52.0) L 10/21/17 07:00 MCV 88.7 fl (80.0-105.0) 10/21/17 07:00 MCH 27.9 pg (25.0-35.0) 10/21/17 07:00 MCHC 31.5 g/dl (31.0-37.0) 10/21/17 07:00 RDW 13.4 % (11.5-14.5) 10/21/17 07:00 Plt Count 285 10^3/uL (120.0-450.0) 10/21/17 07:00 MPV 9.3 fl (7.0-11.0) 10/21/17 07:00 Gran % 34.4 % (50.0-68.0) L 10/21/17 07:00 Lymph % (Auto) 54.0 % (22.0-35.0) H 10/21/17 07:00 [place] % (Auto) 7.3 % (1.0-6.0) H 10/21/17 07:00 Eos % (Auto) 4.1 % (1.5-5.0) 10/21/17 07:00 Baso % (Auto) 0.2 % (0.0-3.0) 10/21/17 07:00 Gran # 2.08 (1.4-6.5) 10/21/17 07:00 Lymph # (Auto) 3.3 (1.2-3.4) 10/21/17 07:00 [place] # (Auto) 0.4 (0.1-0.6) 10/21/17 07:00 Eos # (Auto) 0.3 (0.0-0.7) 10/21/17 07:00 Baso # (Auto) 0.01 K/mm3 (0.0-2.0) 10/21/17 07:00 PT 12.2 SECONDS (9.4-12.5) 10/17/17 18:36 INR 1.07 (0.93-1.08) 10/17/17 18:36 APTT 32.5 Seconds (25.1-36.5) 10/17/17 18:36 pCO2 32 mm/Hg (35-45) L 10/19/17 06:30 pO2 170.0 mm/Hg (80-100) H 10/19/17 06:30 HCO3 15.0 mmol/L (21-28) L 10/19/17 06:30 ABG pH 7.28 (7.35-7.45) L 10/19/17 06:30 ABG Total CO2 16.0 mmol.L (22-28) L 10/19/17 06:30 ABG O2 Saturation 98.7 % (95-98) H 10/19/17 06:30 ABG O2 Content 9.1 ML/dl (15-23) L 10/19/17 06:30 ABG Base Excess -10.8 mmol/L (-2.0-3.0) L 10/19/17 06:30 ABG Hemoglobin 6.3 g/dL (11.7-17.4) L 10/19/17 06:30 ABG Carboxyhemoglobin 0.8 % (0.5-1.5) 10/19/17 06:30 POC ABG HHb (Measured) 1.3 % (0-5) 10/19/17 06:30 ABG Methemoglobin 0.5 % (0.0-3.0) 10/19/17 06:30 ABG O2 Capacity 9.2 mL/dl (16-24) L 10/19/17 06:30 VBG pH 7.32 (7.32-7.43) 10/17/17 23:50 VBG pCO2 65.0 (40-60) H 10/17/17 23:50 VBG HCO3 33.5 mmol/l (21-28) H 10/17/17 23:50 VBG Total CO2 35.5 mmol.L (22-28) H 10/17/17 23:50 VBG O2 Sat (Calc) 98.4 % (40-65) H 10/17/17 23:50 VBG Base Excess 5.3 mmol/L (0.0-2.0) H 10/17/17 23:50 VBG Potassium 3.7 mmol/L (3.6-5.2) 10/17/17 23:50 Hgb O2 Saturation 97.4 % (95.0-98.0) 10/19/17 06:30 Sodium 139.0 mmol/L (132-148) 10/17/17 23:50 Chloride 103.0 mmol/L (98-107) 10/17/17 23:50 Glucose 126 mg/dl (75-110) H 10/17/17 23:50 Lactate 1.8 mmol/L (0.7-2.1) 10/17/17 23:50 FiO2 30.0 % 10/19/17 06:30 Sodium 141 mmol/L (132-148) 10/21/17 07:00 Potassium 4.0 mmol/L (3.6-5.0) 10/21/17 07:00 Chloride 97 mmol/L (98-107) L 10/21/17 07:00 Carbon Dioxide 37 mmol/L (21-33) H 10/21/17 07:00 Anion Gap 11 (10-20) 10/21/17 07:00 BUN 16 mg/dL (7-21) 10/21/17 07:00 Creatinine 0.9 mg/dl (0.8-1.5) 10/21/17 07:00 Est GFR ( Amer) > 60 10/21/17 07:00 Est GFR (Non-Af Amer) > 60 10/21/17 07:00 POC Glucose (mg/dL) 99 mg/dL (65-110) 10/20/17 22:01 Random Glucose 127 mg/dL (70-110) H 10/21/17 07:00 Hemoglobin A1c 7.7 % (4.2-6.5) H 10/17/17 19:40 Serum Osmolality 292 mosm/kg (272-300) 10/17/17 18:36 Calcium 8.7 mg/dL (8.4-10.5) 10/21/17 07:00 Phosphorus 4.5 mg/dL (2.5-4.5) 10/20/17 07:00 Magnesium 1.9 mg/dL (1.7-2.2) 10/20/17 07:00 Total Bilirubin < 0.1 mg/dL (0.2-1.3) L 10/21/17 07:00 AST 21 U/L (17-59) 10/21/17 07:00 ALT 30 U/L (7-56) 10/21/17 07:00 Alkaline Phosphatase 50 U/L (38-126) 10/21/17 07:00 Ammonia 28 umol/L (9-33) 10/17/17 19:40 Lactate Dehydrogenase 382 U/L (333-699) 10/18/17 15:15 Total Creatine Kinase 98 U/L (35-230) 10/18/17 15:15 Troponin I 0.02 ng/mL D 10/18/17 15:15 NT-Pro-B Natriuret Pep 114 pg/mL (0-450) 10/17/17 18:36 Total Protein 6.5 g/dL (5.8-8.3) 10/21/17 07:00 Albumin 3.5 g/dL (3.0-4.8) 10/21/17 07:00 Globulin 3.0 gm/dL 10/21/17 07:00 Albumin/Globulin Ratio 1.1 (1.1-1.8) 10/21/17 07:00 Triglycerides 136 mg/dL (35-160) 10/19/17 06:30 Cholesterol 59 mg/dL (130-200) L 10/19/17 06:30 LDL Cholesterol Direct < 30 mg/dL (0-129) 10/19/17 06:30 HDL Cholesterol 22 mg/dL (29-60) L 10/19/17 06:30 TSH 3rd Generation 4.42 mIU/mL (0.46-4.68) 10/17/17 18:36 Prolactin 17.0 ng/mL (3.7-17.9) 10/18/17 06:00 Venous Blood Potassium 3.7 mmol/L (3.6-5.2) 10/17/17 23:50 Urine Color Yellow (YELLOW) 10/18/17 00:01 Urine Appearance Clear (CLEAR) 10/18/17 00:01 Urine pH 6.0 (4.7-8.0) 10/18/17 00:01 Ur Specific Amity 1.015 (1.005-1.035) 10/18/17 00:01 Urine Protein Negative mg/dL (<30 mg/dL) 10/18/17 00:01 Urine Glucose (UA) Negative mg/dL (NEGATIVE) 10/18/17 00:01 Urine Ketones Negative mg/dL (NEGATIVE) 10/18/17 00:01 Urine Blood Negative (NEGATIVE) 10/18/17 00:01 Urine Nitrate Negative (NEGATIVE) 10/18/17 00:01 Urine Bilirubin Negative (NEGATIVE) 10/18/17 00:01 Urine Urobilinogen 0.2 E.U./dL (<1 E.U./dL) 10/18/17 00:01 Ur Leukocyte Esterase Negative Peña/uL (NEGATIVE) 10/18/17 00:01 Salicylates < 1 mg/dL (2.0-20.0) L 10/17/17 18:36 Urine Opiates Screen Negative (NEGATIVE) 10/18/17 14:00 Urine Methadone Screen Negative (NEGATIVE) 10/18/17 14:00 Acetaminophen < 10.0 ug/ml (10.0-20.0) L 10/17/17 18:36 Ur Barbiturates Screen Negative (NEGATIVE) 10/18/17 14:00 Valproic Acid 30 ug/mL (50.0-100.0) L 10/18/17 06:00 Ur Phencyclidine Scrn Negative (NEGATIVE) 10/18/17 14:00 Ur Amphetamines Screen Negative (NEGATIVE) 10/18/17 14:00 U Benzodiazepines Scrn Negative (NEGATIVE) 10/18/17 14:00 U Oth Cocaine Metabols Negative (NEGATIVE) 10/18/17 14:00 U Cannabinoids Screen Negative (NEGATIVE) 10/18/17 14:00 Alcohol, Quantitative < 10 mg/dL (0-10) 10/17/17 18:36 Blood Type O POSITIVE 10/17/17 18:46 Blood Type Confirm O POSITIVE 10/17/17 19:41 Antibody Screen Negative 10/17/17 18:46 BBK History Checked No verified bt 10/17/17 18:46 - Hospital Course Hospital Course: Patient is a 47 year old male with pertinent medical history of schizoaffective , seizures, hypertension, diabetes, and medication overdoses who was admitted for evaluation and treatment of altered mental status. Patient received Narcan in the ED which led to patient's clinical improvement. With the use of physical examinations, lab work, and imaging the patient was diagnosed with altered mental status secondary to a combination of medication effects and CO2 narcosis. Patient was also treated for his chronic medical conditions. During their hospital stay the patient was seen by neurology (Dr. Ott), psychiatry ( Dr. Burris), and pulmonology (Dr. Lee) whose recommendations were both appreciated and utilized in the care for this patient. Neurology recommended no acute intervention is acquired. Psychiatry contact PACT team and readjusted patient's psych medications. Pulmonology recommended continuing use of noninvasive ventilation at night along with an outpatient polysmnography. During their hospital stay the patient underwent a chest xray, head CT, and head /neck CTA which were reviewed, appreciated, and utilized in the management of the patients clinical course. The chest xray revealed no active disease. The head CT revealed no evidence of acute infarct, no intracranial mass, and no hemorrhage. The CTA of head/neck revealed no definitive suspicious findings. Patient was treated with duonebs, aspirin, lipitor, cogentin, budesonide, clozapine, colchichine, depakote, haloperidol, lisinopril, lopressor, diovan amongst other empiric/therapeutic medications. It is important to note that the patient has asthma/COPD overlap syndrome along with obstructive sleep apnea/ obesity hypoventilation syndrome causing him to be at risk for CO2 retention. He has chronic respiratory failure due to COPD. Patient requires Astral ventilator in IVAPs mode at home and a battery back up as there cannot be any interruption to therapy to ensure night time and day time use to maintain CO2 levels within a normal range. At this time the patient is medically stable for discharge. Patient understands and appreciates discharge plan. Patient instructed to follow up with primary care physicians and referrals within three to five days from discharge. Furthermore, the patient is instructed to take medications as prescribed and to return to emergency room for evaluation of intractable headache, fever, chills, dizziness, chest pain, shortness of breath , abdominal pain, nausea, vomiting, diarrhea, constipation, and urinary symptoms. This is a brief summary of the patients hospital course. Please see patient chart for full details. Discharge Exam - Head Exam Head Exam: NORMAL INSPECTION - Additional Findings Additional findings: - Constitutional Appears: Well - Head Exam Head Exam: ATRAUMATIC, NORMAL INSPECTION, NORMOCEPHALIC - Eye Exam Eye Exam: EOMI, Normal appearance, PERRL - ENT Exam ENT Exam: Mucous Membranes Moist, Normal Exam - Neck Exam Neck exam: Positive for: Normal Inspection - Respiratory Exam Respiratory Exam: diminished breath sounds bilaterally - Cardiovascular Exam Cardiovascular Exam: REGULAR RHYTHM - GI/Abdominal Exam GI & Abdominal Exam: obese, normal Bowel Sounds, Soft. absent: Tenderness - Extremities Exam Extremities exam: Positive for: normal inspection - Neurological Exam Neurological exam: awake, alert, orientated x 3, responds to verbal stimuli, answers questions appropriately, follows commands, and moves extremities past midline - Psychiatric Exam Psychiatric exam: Normal Affect, Normal Mood - Skin Skin Exam: Dry, Intact, Normal Color, Warm Discharge Plan - Discharge Medications Prescriptions: Aspirin [Ecotrin] 81 mg PO DAILY #14 tabec Benztropine [Benztropine Mesylate] 2 mg PO DAILY 14 Days tab Clozapine 400 mg PO DAILY 14 Days #28 tablet Divalproex [Depakote DR TAB] 1,000 mg PO DAILY 14 Days #14 tcp Haloperidol [Haldol] 10 mg PO DAILY 14 Days #14 tab Lisinopril [Zestril] 30 mg PO DAILY #14 tablet Zocor 40 mg PO DAILY 14 Days #14 - Follow Up Plan Condition: STABLE Disposition: HOME/ ROUTINE Additional Instructions: Patient Instructions: Take medications as prescribed. Follow up with PMD and referrals within three to five days from discharge. Return to the emergency room for evaluation of intractable headache, fever, chills, dizziness, chest pain, shortness of breath, abdominal pain, nausea, vomiting, diarrhea, constipation, and urinary symptoms. Referrals: Terri Burris MD [Staff Provider] - Leonard Lee MD [Staff Provider] - <Marilee Wade - Last Filed: 10/21/17 12:56> Provider - Provider Date of Admission: 10/17/17 21:40 Attending physician: Marilee Wade MD Hospital Course - Lab Results Lab Results: Micro Results 10/18/17 10:10 Urine Urine Culture - Final No Growth (<1,000 CFU/ML) Most Recent Lab Values WBC 6.1 10^3/ul (4.5-11.0) 10/21/17 07:00 RBC 4.26 10^6/uL (3.5-6.1) 10/21/17 07:00 Hgb 11.9 g/dL (14.0-18.0) L 10/21/17 07:00 Hct 37.8 % (42.0-52.0) L 10/21/17 07:00 MCV 88.7 fl (80.0-105.0) 10/21/17 07:00 MCH 27.9 pg (25.0-35.0) 10/21/17 07:00 MCHC 31.5 g/dl (31.0-37.0) 10/21/17 07:00 RDW 13.4 % (11.5-14.5) 10/21/17 07:00 Plt Count 285 10^3/uL (120.0-450.0) 10/21/17 07:00 MPV 9.3 fl (7.0-11.0) 10/21/17 07:00 Gran % 34.4 % (50.0-68.0) L 10/21/17 07:00 Lymph % (Auto) 54.0 % (22.0-35.0) H 10/21/17 07:00 [place] % (Auto) 7.3 % (1.0-6.0) H 10/21/17 07:00 Eos % (Auto) 4.1 % (1.5-5.0) 10/21/17 07:00 Baso % (Auto) 0.2 % (0.0-3.0) 10/21/17 07:00 Gran # 2.08 (1.4-6.5) 10/21/17 07:00 Lymph # (Auto) 3.3 (1.2-3.4) 10/21/17 07:00 [place] # (Auto) 0.4 (0.1-0.6) 10/21/17 07:00 Eos # (Auto) 0.3 (0.0-0.7) 10/21/17 07:00 Baso # (Auto) 0.01 K/mm3 (0.0-2.0) 10/21/17 07:00 PT 12.2 SECONDS (9.4-12.5) 10/17/17 18:36 INR 1.07 (0.93-1.08) 10/17/17 18:36 APTT 32.5 Seconds (25.1-36.5) 10/17/17 18:36 pCO2 32 mm/Hg (35-45) L 10/19/17 06:30 pO2 170.0 mm/Hg (80-100) H 10/19/17 06:30 HCO3 15.0 mmol/L (21-28) L 10/19/17 06:30 ABG pH 7.28 (7.35-7.45) L 10/19/17 06:30 ABG Total CO2 16.0 mmol.L (22-28) L 10/19/17 06:30 ABG O2 Saturation 98.7 % (95-98) H 10/19/17 06:30 ABG O2 Content 9.1 ML/dl (15-23) L 10/19/17 06:30 ABG Base Excess -10.8 mmol/L (-2.0-3.0) L 10/19/17 06:30 ABG Hemoglobin 6.3 g/dL (11.7-17.4) L 10/19/17 06:30 ABG Carboxyhemoglobin 0.8 % (0.5-1.5) 10/19/17 06:30 POC ABG HHb (Measured) 1.3 % (0-5) 10/19/17 06:30 ABG Methemoglobin 0.5 % (0.0-3.0) 10/19/17 06:30 ABG O2 Capacity 9.2 mL/dl (16-24) L 10/19/17 06:30 VBG pH 7.32 (7.32-7.43) 10/17/17 23:50 VBG pCO2 65.0 (40-60) H 10/17/17 23:50 VBG HCO3 33.5 mmol/l (21-28) H 10/17/17 23:50 VBG Total CO2 35.5 mmol.L (22-28) H 10/17/17 23:50 VBG O2 Sat (Calc) 98.4 % (40-65) H 10/17/17 23:50 VBG Base Excess 5.3 mmol/L (0.0-2.0) H 10/17/17 23:50 VBG Potassium 3.7 mmol/L (3.6-5.2) 10/17/17 23:50 Hgb O2 Saturation 97.4 % (95.0-98.0) 10/19/17 06:30 Sodium 139.0 mmol/L (132-148) 10/17/17 23:50 Chloride 103.0 mmol/L (98-107) 10/17/17 23:50 Glucose 126 mg/dl (75-110) H 10/17/17 23:50 Lactate 1.8 mmol/L (0.7-2.1) 10/17/17 23:50 FiO2 30.0 % 10/19/17 06:30 Sodium 141 mmol/L (132-148) 10/21/17 07:00 Potassium 4.0 mmol/L (3.6-5.0) 10/21/17 07:00 Chloride 97 mmol/L (98-107) L 10/21/17 07:00 Carbon Dioxide 37 mmol/L (21-33) H 10/21/17 07:00 Anion Gap 11 (10-20) 10/21/17 07:00 BUN 16 mg/dL (7-21) 10/21/17 07:00 Creatinine 0.9 mg/dl (0.8-1.5) 10/21/17 07:00 Est GFR ( Amer) > 60 10/21/17 07:00 Est GFR (Non-Af Amer) > 60 10/21/17 07:00 POC Glucose (mg/dL) 99 mg/dL (65-110) 10/20/17 22:01 Random Glucose 127 mg/dL (70-110) H 10/21/17 07:00 Hemoglobin A1c 7.7 % (4.2-6.5) H 10/17/17 19:40 Serum Osmolality 292 mosm/kg (272-300) 10/17/17 18:36 Calcium 8.7 mg/dL (8.4-10.5) 10/21/17 07:00 Phosphorus 4.5 mg/dL (2.5-4.5) 10/20/17 07:00 Magnesium 1.9 mg/dL (1.7-2.2) 10/20/17 07:00 Total Bilirubin < 0.1 mg/dL (0.2-1.3) L 10/21/17 07:00 AST 21 U/L (17-59) 10/21/17 07:00 ALT 30 U/L (7-56) 10/21/17 07:00 Alkaline Phosphatase 50 U/L (38-126) 10/21/17 07:00 Ammonia 28 umol/L (9-33) 10/17/17 19:40 Lactate Dehydrogenase 382 U/L (333-699) 10/18/17 15:15 Total Creatine Kinase 98 U/L (35-230) 10/18/17 15:15 Troponin I 0.02 ng/mL D 10/18/17 15:15 NT-Pro-B Natriuret Pep 114 pg/mL (0-450) 10/17/17 18:36 Total Protein 6.5 g/dL (5.8-8.3) 10/21/17 07:00 Albumin 3.5 g/dL (3.0-4.8) 10/21/17 07:00 Globulin 3.0 gm/dL 10/21/17 07:00 Albumin/Globulin Ratio 1.1 (1.1-1.8) 10/21/17 07:00 Triglycerides 136 mg/dL (35-160) 10/19/17 06:30 Cholesterol 59 mg/dL (130-200) L 10/19/17 06:30 LDL Cholesterol Direct < 30 mg/dL (0-129) 10/19/17 06:30 HDL Cholesterol 22 mg/dL (29-60) L 10/19/17 06:30 TSH 3rd Generation 4.42 mIU/mL (0.46-4.68) 10/17/17 18:36 Prolactin 17.0 ng/mL (3.7-17.9) 10/18/17 06:00 Venous Blood Potassium 3.7 mmol/L (3.6-5.2) 10/17/17 23:50 Urine Color Yellow (YELLOW) 10/18/17 00:01 Urine Appearance Clear (CLEAR) 10/18/17 00:01 Urine pH 6.0 (4.7-8.0) 10/18/17 00:01 Ur Specific Am[place] 1.015 (1.005-1.035) 10/18/17 00:01 Urine Protein Negative mg/dL (<30 mg/dL) 10/18/17 00:01 Urine Glucose (UA) Negative mg/dL (NEGATIVE) 10/18/17 00:01 Urine Ketones Negative mg/dL (NEGATIVE) 10/18/17 00:01 Urine Blood Negative (NEGATIVE) 10/18/17 00:01 Urine Nitrate Negative (NEGATIVE) 10/18/17 00:01 Urine Bilirubin Negative (NEGATIVE) 10/18/17 00:01 Urine Urobilinogen 0.2 E.U./dL (<1 E.U./dL) 10/18/17 00:01 Ur Leukocyte Esterase Negative Peña/uL (NEGATIVE) 10/18/17 00:01 Salicylates < 1 mg/dL (2.0-20.0) L 10/17/17 18:36 Urine Opiates Screen Negative (NEGATIVE) 10/18/17 14:00 Urine Methadone Screen Negative (NEGATIVE) 10/18/17 14:00 Acetaminophen < 10.0 ug/ml (10.0-20.0) L 10/17/17 18:36 Ur Barbiturates Screen Negative (NEGATIVE) 10/18/17 14:00 Valproic Acid 30 ug/mL (50.0-100.0) L 10/18/17 06:00 Ur Phencyclidine Scrn Negative (NEGATIVE) 10/18/17 14:00 Ur Amphetamines Screen Negative (NEGATIVE) 10/18/17 14:00 U Benzodiazepines Scrn Negative (NEGATIVE) 10/18/17 14:00 U Oth Cocaine Metabols Negative (NEGATIVE) 10/18/17 14:00 U Cannabinoids Screen Negative (NEGATIVE) 10/18/17 14:00 Alcohol, Quantitative < 10 mg/dL (0-10) 10/17/17 18:36 Blood Type O POSITIVE 10/17/17 18:46 Blood Type Confirm O POSITIVE 10/17/17 19:41 Antibody Screen Negative 10/17/17 18:46 BBK History Checked No verified bt 10/17/17 18:46 Attending/Attestation - Attestation I have personally seen and examined this patient.: Yes I have fully participated in the care of the patient.: Yes I have reviewed all pertinent clinical information, including history, physical exam and plan: Yes Notes (Text): 10/21/17 12:53 Attending note; Patient seen and examined with resident. But was able to answer questions appropriately. Patient is a 47 year old male with past medical history of schizoaffective disorder, copd, chronic respiratory failure due to copd, obesity and history of medication overuse who was admitted for evaluation and treatment of altered mental status. patient also had CO2 narcosis. patient is on noninvasive ventilation treatment now. Will be going home with Astral noninvasive ventilation for daytime and night time use. Moving all extremities. ambulating fine. CT head and CTA is negative. neurology evaluation appreciated. Schizoaffective disorder; case discussed with psychiatrist in detail. Medications adjusted by psychiatrist. Pact team was contacted by psychiatrist for follow-up plan. Hypertension; continue Diovan, metoprolol and lisinopril. Morbid obesity; possible obesity hypoventilation syndrome/JHONY. Continue BiPAP at night. Continue oxygen during daytime. Pulmonary evaluation appreciated. No new medication added. Possible discharge home today. Upon discharge the patient will follow up with PMD Dr. Mccall.
[2017-10-21 12:17] VITALS: PULSE 82; RESP 18
--- NOTE | 2017-10-21 17:20 | PN ---
DATE: 10/21/2017 FOLLOWUP NOTE SUBJECTIVE: In short, the patient is a 47-year-old male, long and debilitating history of schizophrenia. The patient is under care of PACT. The patient was admitted on the medical side for episodes of confusion and wandering on the streets for the past 5 days. The patient improved significantly. Medications resumed. Clozaril resumed, haloperidol resumed as well as Depakote resumed, Cogentin as well. The patient's mental status improved significantly. This lyric writer contacted PACT team, educated about the patient's plan. PACT team will follow the patient up on the community tomorrow. The patient has all of the medication at home. Vital signs are stable, but blood pressure is elevated at 161/107. Medications reviewed as described above. Labs reviewed. Most recent was from today. MENTAL STATUS EXAMINATION: The patient presented to be well, alert and oriented, remembered this lyric writer. Mood described as okay. Affect was constricted, but reactive. Mood congruent. Thought process seems to be concrete. Thought content, the patient denied visual, auditory or tactile hallucinations. Denied paranoid ideation. The patient denied thoughts of harming himself or others. Denies intent or plan. The patient does not have any behavioral issues and on the medical side in good behavioral control. The patient is on Clozaril and there are no signs of granulocytosis, the granulocyte level is 2.08. IMPRESSION: Schizophrenia. PLAN: Continue current management. Continue current medication. As per medical team, the patient is medically stable. PACT team was contacted. The patient has all of the medication at home. The patient will have BiPAP machine at home. Discharge plan was discussed with the patient as well as with PACT team. The patient presented to be not in any imminent danger to self or others. The patient will be discharged back home today. No prescriptions were given because the patient has enough at home. Terri Burris MD
== END 2017-10-21 14:28 | disposition home or self-care (01) | DRG 533 ==
LOC: ED 17:58 → ERH 21:40 → 2RSO 10-18 00:50
PROVIDERS: ADMIT Internal Medicine; ATTEND Internal Medicine
PROC: 5A09457 Assistance with Respiratory Ventilation, 24-96 Consecutive Hours, Continuous Positive Airway Pressure (ICD-10-PCS; principal; 2017-10-18)
PROC: 3E0F7GC Introduction of Other Therapeutic Substance into Respiratory Tract, Via Natural or Artificial Opening (ICD-10-PCS; 2017-10-18)
DX: G93.40 Encephalopathy, unspecified (principal); J96.22 Acute and chronic respiratory failure with hypercapnia; F25.9 Schizoaffective disorder, unspecified; E87.2 Acidosis; E66.2 Morbid (severe) obesity with alveolar hypoventilation; J44.9 Chronic obstructive pulmonary disease, unspecified; R56.9 Unspecified convulsions; T42.6X1A Poisoning by other antiepileptic and sedative-hypnotic drugs, accidental (unintentional), initial encounter; Z68.42 Body mass index [BMI] 45.0-49.9, adult; I10 Essential (primary) hypertension; E11.9 Type 2 diabetes mellitus without complications; M10.9 Gout, unspecified; G47.33 Obstructive sleep apnea (adult) (pediatric); Z91.83 Wandering in diseases classified elsewhere; Z91.14 Patient's other noncompliance with medication regimen; Z91.19 Patient's noncompliance with other medical treatment and regimen

== ENCOUNTER 2018-05-28 23:05 | Emergency (ER) | payer OTHER ==
[2018-05-28 23:07] VITALS: BMI 44.6
--- NOTE | 2018-05-28 23:29 | ED PDOC ---
Arrival/HPI - General Chief Complaint: Lower Extremity Problem/Injury Historian: Patient - History of Present Illness Narrative History of Present Illness (Text): 05/28/18 23:23 48yo morbidly morbid obese male with pmhx of Schizophrenia bib for complaint of nasal congestion and right ankle pain x 2weeks. Note that the pain is usually when standing or ambulating. States he did not take any anticongesant. Denies fever, chills, headache, facial pain, cough, SOB, chest pain, sick contact, calf pain, trauma, any other complaint. Past Medical History - Provider Review Nursing Documentation Reviewed: Yes - Past History Past History: Unable to Obtain - Infectious Disease Hx of Infectious Diseases: None - Tetanus Immunization Tetanus Immunization: Unknown - Cardiac Hx Cardiac Disorders: Yes Hx Hypertension: Yes - Pulmonary Hx Respiratory Disorders: Yes Hx Sleep Apnea: Yes (BIPAP) - Neurological Hx Neurological Disorder: Yes Hx Seizures: Yes - HEENT Hx HEENT Disorder: No - Renal Hx Renal Disorder: No - Endocrine/Metabolic Hx Diabetes Mellitus Type 2: Yes - Hematological/Oncological Hx Blood Disorders: Yes Hx Anemia: Yes - Integumentary Hx Dermatological Disorder: No - Musculoskeletal/Rheumatological Hx Musculoskeletal Disorders: Yes Hx Falls: Yes Hx Gout: Yes - Gastrointestinal Hx Gastrointestinal Disorders: No - Genitourinary/Gynecological Hx Genitourinary Disorders: No - Psychiatric Hx Psychophysiologic Disorder: Yes Hx Anxiety: Yes Hx Depression: Yes Hx Schizophrenia: Yes Hx Substance Use: Yes (Hx depakote use) Other/Comment: HX substance abuse ( depakote) - Surgical History Other/Comment: throat surgery - Anesthesia Hx Anesthesia: No Hx Anesthesia Reactions: No Hx Malignant Hyperthermia: No Family/Social History - Physician Review Nursing Documentation Reviewed: Yes Family/Social History: Unknown Family HX Smoking Status: Smoker Currrent Status Unknown Hx Alcohol Use: Yes (ocassionally) Hx Substance Use: Yes (Hx depakote use) Allergies/Home Meds Allergies/Adverse Reactions: Allergies FISH Allergy (Verified 10/17/17 18:08) RASH Home Medications: Home Meds Medication Instructions Recorded Confirmed RX: Metformin HCl 1,000 mg PO BID 07/26/15 10/18/16 Review of Systems - Physician Review All systems were reviewed & negative as marked: Yes - Review of Systems Constitutional: Normal Eyes: Normal ENT: Other (Nasal congestion) Respiratory: Normal Cardiovascular: Normal Gastrointestinal: Normal Genitourinary Male: Normal Musculoskeletal: Arthralgias (Right ankle pain) Skin: Normal Neurological: Normal Endocrine: Normal Hemo/Lymphatic: Normal Psychiatric: Normal Physical Exam Vital Signs Reviewed: Yes Temperature: Afebrile Blood Pressure: Normal Pulse: Regular Respiratory Rate: Normal Appearance: Positive for: Well-Appearing, Non-Toxic, Comfortable Pain Distress: None Mental Status: Positive for: Alert and Oriented X 3 - Systems Exam Head: Present: Atraumatic, Normocephalic Pupils: Present: PERRL Extroacular Muscles: Present: EOMI Conjunctiva: Present: Normal Mouth: Present: Moist Mucous Membranes Nose (Internal): Present: Engorged (b/l) Neck: Present: Normal Range of Motion Respiratory/Chest: Present: Clear to Auscultation, Good Air Exchange. No: Respiratory Distress, Accessory Muscle Use, Wheezes, Decreased Breath Sounds, Rales, Retracting, Rhonchi Cardiovascular: Present: Regular Rate and Rhythm, Normal S1, S2. No: Murmurs Abdomen: No: Tenderness, Distention, Peritoneal Signs Back: Present: Normal Inspection Upper Extremity: Present: Normal Inspection. No: Cyanosis, Edema Lower Extremity: Present: Normal Inspection, NORMAL PULSES, Normal ROM, Neurovascularly Intact. No: Edema, CALF TENDERNESS, Ananya's Sign, Tenderness, Swelling, Temperature Abnormalties Neurological: Present: GCS=15, CN II-XII Intact, Speech Normal Skin: Present: Warm, Dry, Normal Color. No: Rashes Psychiatric: Present: Alert, Oriented x 3, Normal Insight, Normal Concentration Medical Decision Making ED Course and Treatment: 05/29/18 01:23 PT in ED for stated history. He was hemodynamicallyu stable. Right ankle xray - No acute fracture. Spur noted Result was Dw the pt He was treated with prednisone and claritin. DC home with flonase, claritin and ibuprofen Referred to a geomagnetist/pmd - RAD Interpretation Radiology Orders: 05/28/18 23:22 ANKLE RIGHT 3 VIEWS ROUTINE [RAD] Stat Disposition/Present on Arrival - Present on Arrival Any Indicators Present on Arrival: No History of DVT/PE: No History of Uncontrolled Diabetes: No Urinary Catheter: No History of Decub. Ulcer: No History Surgical Site Infection Following: None - Disposition Have Diagnosis and Disposition been Completed?: Yes Diagnosis: Morbid obesity, Nasal congestion Disposition: HOME/ ROUTINE Disposition Time: 01:05 Patient Plan: Discharge Patient Problems: Current Active Problems Problem Status Onset Morbid obesity Chronic Condition: STABLE Discharge Instructions (ExitCare): Obesity, Adult, Ankle Sprain Additional Instructions: Follow up with your Doctor/Electromechanical Technician Return to ED for any new or worsening symptoms Prescriptions: Fluticasone Propionate [Flonase] 1 spr NS DAILY #1 spr RX: Ibuprofen [Motrin Tab] 600 mg PO Q6 #15 tab Loratadine/Pseudoephedrine [Claritin-D 24 Hour Tablet] 1 each PO DAILY #20 tab.er.24h Referrals: Art Santiago DPM [Staff Provider] - Follow up with primary Forms: [employer] [facility] ([place])
[2018-05-29 00:28] VITALS: O2SAT 95
[2018-05-29 01:36] VITALS: BP 130/82; PULSE 98; RESP 20; TEMP 99.2
--- NOTE | 2018-05-29 09:19 | RAD ---
Date of service: 05/28/2018 PROCEDURE: Right Ankle Radiographs. HISTORY: ankle pain COMPARISON: None available. FINDINGS: BONES: Normal. No fracture. JOINTS: Normal. No osteoarthritis. Ankle mortise maintained. Talar dome intact SOFT TISSUES: Normal. OTHER FINDINGS: None. IMPRESSION: Normal right ankle radiographs.
== END 2018-05-29 01:54 | disposition home or self-care (01) ==
LOC: ED 23:05
DX: R09.81 Nasal congestion (principal); E66.01 Morbid (severe) obesity due to excess calories; I10 Essential (primary) hypertension; F17.210 Nicotine dependence, cigarettes, uncomplicated